=== PATIENT | female | born 1970 | race Caucasian/White ===

== ENCOUNTER 2017-12-17 19:57 | Emergency (ER) | payer OTHER, SELFPAY ==
[2017-12-17 19:58] VITALS: BP 155/100; PULSE 107; RESP 16; TEMP 36.9; O2SAT 97; BMI 33.3
[2017-12-17 21:19] LABS: Mucous, Urine 0 SEEN /hpf (<or=2+); Red Blood Cells-Urine 0 SEEN /hpf (0-5); White Blood Cells 0 SEEN /hpf (0-5)
[2017-12-17 21:30] LABS: Color, Urine Yellow (Yellow); Glucose, Dipstick Normal (Normal); Ketone-Dipstick Negative (Negative); Leukocyte Esterase-Dipstick Negative /ul (Negative); Nitrite-Dipstick Negative (Negative); Occult Blood-Urine Negative /ul (Negative); Protein-Dipstick Negative (Negative); Specific Gravity, Urine 1.015 (1.002-1.030); Urine Bilirubin Dipstick Negative (Negative); Urine Clarity Clear (Clear); Urine Urobilinogen Normal (Normal)
[2017-12-17 22:02] LABS: Bacteria RARE /hpf (None Seen); Squamous Epithelial Cells - UA 0-5 SEEN /hpf (5-10)
--- NOTE | 2017-12-17 22:52 | CT_ITS ---
STUDY: CT ABDOMEN AND PELVIS WITHOUT CONTRAST REASON FOR EXAM: Female, 47 years old. RT FLANK PAIN AND NAUSEA SINCE THIS AM,ELEVATED BP PRIOR C-SECTIONS AND CHOLECYSTECTOMY RADIATION DOSAGE (If Supplied By Facility): CTDIvol = ( 14.99 ) mGy, DLP = ( 786.69 ) mGycm TECHNIQUE: Transaxial images were obtained from the dome of the diaphragm to the symphysis pubis without oral contrast, and without intravenous contrast. Sagittal and coronal images were reconstructed. Individualized dose optimization techniques were used for this CT. COMPARISON: CT Abdomen/Pelvis Jul 29 2015 2:08pm FINDINGS: The visualized lung bases are unremarkable. The visualized portions of the heart are within normal limits. Normal liver. There are surgical clips in the gallbladder fossa consistent with a prior cholecystectomy. Normal spleen. Normal pancreas. Normal bilateral adrenal glands. Normal right kidney. There is cortical scarring of the left kidney. Left extrarenal pelvis. Normal visualized stomach. Normal small intestine. There are multiple colonic diverticula consistent with diverticulosis. The appendix is visualized and appears normal. Normal abdominal aorta. Normal inferior vena cava. Normal retroperitoneum. Normal urinary bladder. Normal visualized uterus. Normal abdominal wall. There is endplate spondylosis of the vertebral body. CT/Abdomen/Pelvis without Cont IMPRESSION: Cholecystectomy. There are multiple diverticuli of the colon. There is diverticulosis but no radiographic signs for diverticulitis. There is cortical scarring of the left kidney. There are no renal stones. Electronically Signed: Jigar Thornton MD at 23:53 EDT , Service support ,
--- NOTE | 2017-12-17 22:53 | ED.VISSUMM ---
- ER Visit Summary Date of Service: 12/17/17 Chief Complaint: Right flank pain History of Present Illness: The patient is a 47 F waxing and waning right flank pain since this morning. Pain radiating to the groin. No urinary symptoms. Nausea without vomiting. No history of kidney stones. Took Excedrin Migraine this morning with no relief. Did have a headache this morning which has resolved. Pain currently 7 out of 10. Occasional sharp sensations. History of uterine ablations are for no menstrual periods. States she has had a history of a kidney atrophy for she thinks it is on the left side. She saw Dr. Curtis. Unknown etiology. No gastric ulcers. Physical Examination: General: Alert and oriented ?3, mild distress HEENT: Normocephalic, atraumatic. Moist mucosa membranes Neck: supple, nontender. Cardiovascular: Regular rate and rhythm, no murmurs Respiratory: Normal breath sounds, symmetric, no distress Back: Right CVA tenderness with no rash. Abdomen: Soft, nontender, nondistended Extremities: Nontender, no edema, pulses intact ?4 Neuro: no focal neurological deficits. Test Results: UA negative. HCG negative. BMP, CBC normal. CT abdomen pelvis negative. Emergency Department Course and Treatment: Patient uncomfortable, treated morphine and Zofran. Fluids given. Renal stone protocol was negative. Normal appendix, no obstructive uropathy. Discussed with patient and spouse, monitoring for any rash. Denies any injury. With her history of renal atrophy on one side, discussed using Tylenol as needed for symptom control. Follow-up with PCP. Return if any worsening symptoms. All questions are answered. Treatment Plan: [] Disposition: Discharge Impression: 1. Right flank pain uncertain etiology This note was generated with [employer] dictation software. It may contain incorrect words, spelling, and punctuation that were not noted in review of the chart prior to signing ED Disposition - Plan for ED Patient: Disposition: Home or Assisted Living Chief Complaint: Flank Pain Diagnosis: Right flank pain Instructions: ED Flank Pain Uncertain Cause Referrals: Brice Floyd [Primary Care Provider] - 3-5 Days if not improving Additional Instructions: Monitor for any rash. Use Tylenol as needed for pain control. Follow with PCP. Return if any worsening symptoms.
[2017-12-17 23:02] LABS: Pregnancy, Serum, hCG Quali. NEGATIVE Negative (0-9 Nonpreg)
[2017-12-17] MEDS: 0.9% Normal Saline 1,000 ML 250 ML IV (23:06)
[2017-12-17] MEDS: Ondansetron 4 MG/2 ML Vial IV (23:06)
[2017-12-17 23:17] LABS: Absolute Lymphocyte Count 1.87 X10^3/ul (0.83-4.51); Absolute Neutrophil Count 5.7 X10^3/uL (2.0-7.7); Basophil# 0.01 X10^3/uL; Basophil% 0.1 % (0-1); Eosinophils% 1.2 % (0-5); Hematocrit 45.3 % (37-47); Hemoglobin 15.3 g/dl (12.0-15.0); Lymphocyte # 1.87 X10^3/ul (4.0); Lymphocyte % 22.8 % (19-41); Mean Corp Hgb Conc 33.8 g/gl (32-36); Mean Platelet Vol. 10.5 fl (6.2-12.0); Monocyte# 0.54 X10^3/uL; Monocyte% 6.6 % (0-10); Neutrophil # 5.66 X10^3/uL (2.7-7.7); Neutrophil % 69.1 % (47-70); Platelet Count 254 K/mm3 (150-450); RBC Distribution Width CV 12.6 % (11.6-14.6); RBC Distribution Width SD 39.7 fl (35.1-43.9); Red Blood Count 5.27 M/mm3 (4.2-5.4); White Blood Count 8.2 K/mm3 (4.4-11.0)
[2017-12-17 23:18] LABS: POSITIVE COUNT NO; POSITIVE DIFFERENTIAL NO; POSITIVE MORPHOLOGY NO
[2017-12-17 23:24] LABS: Anion Gap 6 (5-15); BUN 12 mg/dL (7-18); BUN/Creat Ratio 17.2 RATIO (10-20); Calcium,Total 8.8 mg/dL (8.5-10.1); Chloride 106 mmol/L (98-107); EST Glomerular Filtration Rate 95 mL/min (>60); Est Glom Filt Rate - Afr Amer 115 mL/min (>60); Estimated Creatinine Clearance 84.87 ml/min; Glucose 92 mg/dL (74-106); Potassium 3.7 mmol/L (3.5-5.1); Sodium Level 137 mmol/L (136-145)
[2017-12-18 00:44] VITALS: BP 124/80; PULSE 62; RESP 18; O2SAT 97
== END 2017-12-18 00:45 | disposition home or self-care (01) ==
PROVIDERS: Emergency Provider Emergency Medicine; Family Provider Family Medicine; PCP Family Medicine
DX: R10.9 Unspecified abdominal pain (principal); F41.9 Anxiety disorder, unspecified; Z87.448 Personal history of other diseases of urinary system; Z79.899 Other long term (current) drug therapy
CPT/HCPCS: 74176; 80048; 81001; 84703; 85025; 96361; 96374; 96375; 99283; J7030; A4216; J2405

== ENCOUNTER 2018-04-19 07:00 | Outpatient (RCR) | payer OTHER, SELFPAY ==
--- NOTE | 2018-03-25 07:56 | HP.PTEVAL ---
Patient's Visit Information OMID WEAVER is a 47 year old F referred to Physical Therapy by ALMA Bailey with a diagnosis of Shoulder Pain. Date of Evaluation: 03/25/18 Physical Therapist: Desirae Byrnes - Visit Plan Frequency: 2x /Week Duration: 3 Weeks Plan: Focus on ROM and postural corrections- modality of US as needed for inflammation control - Subjective Subjective: Patient reports straining her shoulder joint-carrying dress clothes over her shoulder and its hurt ever since- end of February. Went to the MD last week who gave her a muscle relaxer and had a massage and pain injection. It catches when she does simple tasks. Describes pain as sharp and catching. Worst:7/10 hits then goes away- does have mild dull/achy pain that lingers- towards the end of the day. Agg: reaching. Best: 0/10 Eases: nothing. Pain is located in the anterior shoulder- will radiate to the elbow and she does have tense pains in the neck. 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 No BENITEZ, blurred vision or dizziness. Agg after carrying/lifting 6 month old grandbaby. Feels the shoulder is better than last week but its still catching/shooting randomly. Right hand dominate. No x-ray or MRI. PMhx: none Meds: lexipro, muscle relaxers, steriod dose pack (last day is today). Sleep: disturbed- belly/side sleeper- hard to get comfortabe and will wake her up. 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 - Objective Posture: significant rounded shoulders- mild forward head- can correct with verbal and tactile cues but does not maintain. Gait: decreased arm swing and trunk rotation. Palpation: tender along upper trap to the tip of the acromion, bicipital groove. ROM: cervical: WNL AROM Shoulder: flexion: 110 degrees, Abd: 90 degrees, IR: to pocket ER: 40 degrees PROM: flexion; 130 degrees Abd: 110 degrees- shoulder has pain at all end ranges- elbow/wrist/hand: WNL. Sensation: WNL. Strength: Scap:fair minus, Shoulder: 4/5 with pain in all directions within available range. Elbow/Wrist/Store Loss Prevention Manager: WNL. Special Test: Impingment: positive, Neer: positive, Empty Can: negative Lift off: negative - Goals Goal 1:: Patient will be I with HEP and progression Goal Time Frame: 4-6 Weeks Goal 2:: Patient will maitain proper posture t/o tx session to demo increased scap s/s. Goal Time Frame: 4-6 Weeks Goal 3:: Patient will demo full AROM of the left shoulder to ease ADL's. Goal Time Frame: 4-6 Weeks Goal 4:: Patient will report 0/10 pain for 1 week Goal Time Frame: 4-6 Weeks - Rehabilitation Potential Physical Therapy Diagnosis: Patient presents with hypomobility- she has decreased ROM, strength and muscular endurance leading to poor posture and increased pain with ADL's. Rehabilitation Potential: Fair - Anticipated Interventions Patient/Client Instruction: Educate patient on: Benefits of Fitness Program For the Purpose of:: To improve ability to perform ADL's Therapeutic Exercise to Include: Strength training, Endurance training, Agility training, Postural training, Passive ROM, Active ROM, Scapular Strength/Stabilization For the Purpose of:: To improve muscle performance and motor function TENS: Yes Cryotherapy (ice pack, ice massage): Yes Thermo therapy (hot pack): Yes Ultrasound (thermal/non thermal): Yes For the Purpose of:: To decrease pain Thank you for the opportunity to evaluate your patient. For Medicare and Medicare HMO plans, please review the plan of care and approve it. It will need to be FAXED BACK to us at [phone] for Medicare purposes. Please let me know if there are questions or concerns regarding this plan of care. Physician Signature: Date:
--- NOTE | 2018-04-19 07:18 | HP.PTDCSUM ---
HP - PT D/C Summary It has been my pleasure to treat OMID WEAVER under orders from ALMA Bailey, for the diagnosis of Shoulder Pain for a total of 7 visit(s). Discharge Date: Please see the following information for a summary of their discharge status. - Subjective Subjective: Patient reports that she is happy with progress- she still has some s/s but its improving. She feels confident with HEP and will continue at home. She still has some snapping and popping in the left shoulder. She plans to see ortho for a possible injection - Pain Left Shoulder Pain Intensity (Out of 10): 0 - Objective Objective/Function: Posture: improved posture- mild forward head- can correct with verbal and tactile cues and will maintain for approx. 3 minutes. Gait: no deviation noted- no guarding of the UE. Palpation: tender along upper trap to the tip of the acromion, bicipital groove. ROM: cervical: WNL AROM Shoulder: WFL in all planes- elbow/wrist/hand: WNL. Sensation: WNL. Strength: Scap:fair, Shoulder: 4+/5 with discomfort in all directions. Elbow/Wrist/Trade Sales Assistant: WNL. Special Test: Impingment: positive, Neer: positive, Empty Can: negative Lift off: negative - Goals Goal 1:: Patient will be I with HEP and progression Goal Progress: Goal Met Goal 2:: Patient will maitain proper posture t/o tx session to demo increased scap s/s. Goal Progress: Goal Met Goal 3:: Patient will demo full AROM of the left shoulder to ease ADL's. Goal Progress: Goal Met Goal 4:: Patient will report 0/10 pain for 1 week Goal Progress: Progressing - Plan Plan: Discharge to I HEP - D/C Information If there are questions or concerns regarding this patient's physical therapy, please feel free to call me at [phone]. Thank you for the referral of this patient. Sincerely, Desirae Byrnes
== END 2018-04-19 19:00 | disposition home or self-care (01) ==
LOC: PT 07:00
PROVIDERS: Family Provider Family Medicine; PCP Family Medicine; Visit Provider Physician Assistant
DX: M25.512 Pain in left shoulder (principal); M54.2 Cervicalgia
CPT/HCPCS: 97110; 97161; 97164

== ENCOUNTER → 2018-05-31 07:22 | Outpatient (CLI) | payer OTHER, SELFPAY | PROVIDERS: Family Provider Family Medicine; PCP Family Medicine; Visit Provider Physician Assistant | DX: R30.0 Dysuria (principal) | CPT/HCPCS: 87086; 87088 ==

== ENCOUNTER 2018-08-13 17:15 | Outpatient (RCR) | payer OTHER, SELFPAY ==
--- NOTE | 2018-09-25 12:38 | MASS.DISCH ---
Massage Therapy Discharge Summary: Discharge Date: 09/25/2018 Kelsey was seen for a massotherapy evaluation on 03/21/2018 with the diagnosis of cervicalgia and low back pain. She was treated with four sessions of massage therapy consisting of deep pressure soft tissue techniques, myofascial release and trigger point compression to her cervical, thoracic, lower back, upper extremities and hips. Kelsey responded well to the therapy by reporting decreased tension and pain throughout her neck, shoulders, lower back and hips. Her goals for therapy were met throughout the treatment sessions. At this time this patient is being discharged from our care at [facility] facility.
== END 2018-08-13 19:00 | disposition home or self-care (01) ==
LOC: MASS 17:15
PROVIDERS: Family Provider Family Medicine; PCP Family Medicine; Visit Provider Physician Assistant
DX: M54.2 Cervicalgia (principal); M54.5 Low back pain
CPT/HCPCS: 97124

== ENCOUNTER → 2018-11-18 06:47 | Outpatient (CLI) | payer OTHER, SELFPAY ==
--- NOTE | 2018-11-18 06:50 | BI_ITS ---
MAMMOGRAPHY - BILATERAL SCREENING REASON FOR EXAM: Female, 48 years old. Routine annual screening examination. PERTINENT HISTORY: Non-contributory. TECHNIQUE: Digital bilateral breast betzy (3D mammographic acquisition) in the CC and MLO projections. 2-D mediolateral oblique (MLO) and craniocaudad (CC) views of both breasts were obtained. CAD: Full Field Digital Mammography with Computer Added Detection was performed. COMPARISON: Comparison is made with prior study dated July 03, 2016. FINDINGS: Breast Composition: There are scattered areas of fibroglandular density. There are no dominant masses or suspicious calcifications. Stable small bilateral axillary lymph nodes. No other significant abnormalities are identified. There has been no significant change since the prior study. BI/SCREENING MAMM (CAD), BILAT IMPRESSION: Stable bilateral screening mammogram. Yearly follow-up mammogram recommended. (A) ASSESSMENT CATEGORY: BIRADS Category 2: Benign. A letter regarding these results will be sent to the patient by the facility within 30 days. Approximately 10% of breast cancers are not detected by mammography. A normal mammogram should not delay biopsy of a clinically suspicious abnormality. [id number] Electronically Signed: Dyllan Beaulieu MD at 10:27 EST , Service support ,
== END ==
PROVIDERS: Family Provider Family Medicine; PCP Family Medicine; Referring Provider Family Medicine; Visit Provider Family Medicine
DX: Z12.31 Encounter for screening mammogram for malignant neoplasm of breast (principal)
CPT/HCPCS: 77063; 77067

== ENCOUNTER → 2019-05-30 | Outpatient (CLI) | payer OTHER, SELFPAY ==
[2019-05-03 08:32] VITALS: BMI 33.3
[2019-05-30 08:59] LABS: Hemoglobin A1c 5.9 % (4.2-6.3)
== END | disposition home or self-care (01) ==
PROVIDERS: Family Provider Family Medicine; PCP Family Medicine; Referring Provider Physician Assistant; Visit Provider Physician Assistant
DX: R73.9 Hyperglycemia, unspecified (principal)
CPT/HCPCS: 83036

== ENCOUNTER → 2019-11-25 | Outpatient (CLI) | payer OTHER, SELFPAY ==
[2019-09-26 07:42] VITALS: BMI 33.3
--- NOTE | 2019-11-25 07:16 | BI_ITS ---
MAMMOGRAPHY - BILATERAL SCREENING REASON FOR EXAM: Female, 49 years old. Routine annual screening examination. PERTINENT HISTORY: Non-contributory. TECHNIQUE: Digital bilateral breast génesis (3D mammographic acquisition) in the CC and MLO projections. 2-D mediolateral oblique (MLO) and craniocaudad (CC) views of both breasts were obtained. CAD: Full Field Digital Mammography with Computer Added Detection was performed. COMPARISON: Comparison is made with prior study dated November 18, 2018 and July 03, 2016. FINDINGS: Breast Composition: There are scattered areas of fibroglandular density. There are no dominant masses or suspicious calcifications. Stable small benign-appearing bilateral axillary lymph nodes. No other significant abnormalities are identified. There has been no significant change since the prior study. BI/SCREEN MAMM (CAD) W/GÉNESIS BILAT IMPRESSION: Stable bilateral screening mammogram. Yearly follow-up mammogram recommended. (A) ASSESSMENT CATEGORY: BIRADS Category 2: Benign. A letter regarding these results will be sent to the patient by the facility within 30 days. Approximately 10% of breast cancers are not detected by mammography. A normal mammogram should not delay biopsy of a clinically suspicious abnormality. [id number] Electronically Signed: Dyllan Beaulieu, at 9:21 EST , Service support ,
== END | disposition home or self-care (01) ==
LOC: OPBI 07:14
PROVIDERS: PCP Family Medicine; Referring Provider Physician Assistant; Visit Provider Family Medicine
DX: Z12.31 Encounter for screening mammogram for malignant neoplasm of breast (principal)
CPT/HCPCS: 77063; 77067

== ENCOUNTER → 2020-06-03 | Outpatient (CLI) | payer OTHER, SELFPAY ==
[2019-09-26 07:42] VITALS: BMI 33.3
[2020-06-03 13:00] LABS: Hemoglobin A1c 5.5 % (3.8-5.6)
== END | disposition home or self-care (01) ==
PROVIDERS: Physician Assistant; PCP Family Medicine; Referring Provider Family Medicine; Visit Provider Family Medicine
DX: R73.9 Hyperglycemia, unspecified (principal)
CPT/HCPCS: 83036

== ENCOUNTER → 2022-06-19 | Outpatient (CLI) | payer OTHER, SELFPAY ==
[2022-06-19 14:55] LABS: Hemoglobin A1c 6.4 % (3.8-5.6)
== END | disposition home or self-care (01) ==
LOC: LAB 14:22
PROVIDERS: PCP Family Medicine; Referring Provider Physician Assistant; Visit Provider Physician Assistant
DX: R73.9 Hyperglycemia, unspecified (principal)
CPT/HCPCS: 36415; 83036

== ENCOUNTER → 2023-06-01 | Outpatient (CLI) | payer OTHER, SELFPAY ==
--- NOTE | 2023-06-01 07:36 | BI_ITS ---
MAMMOGRAPHY - BILATERAL SCREENING REASON FOR EXAM: Female, 53 years old. Routine annual screening examination. PERTINENT HISTORY: Non-contributory. TECHNIQUE: Digital bilateral breast génesis (3D mammographic acquisition) in the CC and MLO projections. 2-D mediolateral oblique (MLO) and craniocaudad (CC) views of both breasts were obtained. CAD: Full Field Digital Mammography with Computer Added Detection was performed. COMPARISON: Comparison is made with prior study of November 25, 2019 and November 18, 2018. FINDINGS: Breast Composition: There are scattered areas of fibroglandular density. There is a 1 cm x 0.8 cm well-defined nodule in the upper central portion of the left breast. Correlation with ultrasound is recommended. This also evidence of a 0.8 cm x 0.6 cm well-defined nodule in the central portion of the breast. Correlation with ultrasound is recommended. Prominent left axillary lymph node. Since prior study, there has been mild degree of her thickening of the overlying skin of the left breast. No other significant abnormalities are identified. BI/SCRN MAMM (CAD)W/GÉNESIS BILAT IMPRESSION: Nodular densities in the left breast as described. Correlation with ultrasound is recommended. Prominence of the left axillary lymph nodes as described. Correlation with ultrasound is recommended as well. ASSESSMENT CATEGORY: BIRADS Category 0: Incomplete. Need additional imaging evaluation. A letter regarding these results will be sent to the patient by the facility within 30 days. Approximately 10% of breast cancers are not detected by mammography. A normal mammogram should not delay biopsy of a clinically suspicious abnormality. [id number] Electronically Signed: Dyllan Beaulieu MD at 8:40 EDT ,
[2023-06-01 08:05] LABS: Microalbumin:Creatinine Ratio 20.4 mg/g CRE (<30 mg/g CRE)
== END | disposition home or self-care (01) ==
LOC: OPBI 07:33
PROVIDERS: Physician Assistant; PCP Family Medicine; Referring Provider Family Medicine; Visit Provider Family Medicine
DX: Z12.31 Encounter for screening mammogram for malignant neoplasm of breast (principal); R73.9 Hyperglycemia, unspecified
CPT/HCPCS: 77063; 77067; 82043; 82570

== ENCOUNTER → 2023-06-06 | Outpatient (CLI) | payer OTHER, SELFPAY ==
--- NOTE | 2023-06-06 07:48 | US_ITS ---
STUDY: ULTRASOUND BREAST - LEFT REASON FOR EXAM: Female, 53 years old. Abnormal screening mammogram. TECHNIQUE: Axial and longitudinal images of the LEFT breast were performed with a high resolution ultrasound transducer. # OF IMAGES: [id number] COMPARISON: Comparison is made with prior mammogram dated June 01, 2023. FINDINGS: LEFT Breast: There is an 8 mm x 7 mm x 6 mm cyst at the 12:00 to 1:00 position of the breast at 5 cm from the nipple. There is a 1.2 cm x 0.7 cm x 1 cm hypoechoic heterogeneous nodule with spiculated margins at the 12:00 position of the breast at 6 cm from the nipple. Biopsy recommended. Enlarged left axillary lymph nodes. There is a dominant lymph node measuring 2.9 cm x 1.4 sign grown 0.5 cm. US/Breast Limited Unilateral IMPRESSION: 1.2 cm x 0.7 cm x 1 cm hypoechoic heterogeneous nodule with spiculated margins at the 12:00 position of the breast at 6 cm from nipple. Biopsy recommended. Enlarged left axillary lymph nodes. Biopsy recommended as well. ASSESSMENT CATEGORY: BIRADS Category 4: Suspicious - Biopsy Should Be Considered. A letter regarding these results will be sent to the patient by the facility within 30 days. Electronically Signed: Dyllan Beaulieu MD at 12:40 EDT ,
== END | disposition home or self-care (01) ==
PROVIDERS: PCP Family Medicine; Referring Provider Physician Assistant; Visit Provider Physician Assistant
DX: R92.2 Inconclusive mammogram (principal); R73.9 Hyperglycemia, unspecified
CPT/HCPCS: 36415; 76642; 83036

== ENCOUNTER → 2023-06-08 | Outpatient (CLI) | payer OTHER, SELFPAY ==
--- NOTE | 2023-06-08 | IMM_PTH ---
PATIENT: OMID WEAVER LOC: [facility] U#:[id number] AGE/SX: 53/F ROOM: RE06/08/[address]: Dr. Lalo Zelaya MD : 1970 BED: DIS: 06/08/2023 SPEC #: [id number] RECD: 06/13/23 14:16 STATUS: BASIM REQ #: [id number] HALIE: 06/08/23 00:[address]: Lalo Zelaya DEPT: IMMUNOHISTOCHEMISTRY RECD BY: Jenn Adams ENTERED: 06/13/23 14:17 SP TYPE: IMMUNO OTHR DR: Dr. Brice Floyd MD Tissues: A - Left breast, NOS B - Axillary lymph node, NOS Procedures: Mammoglobin (initial) CALPONIN-1 (add) CK5-6 (add) CK8 (add) E-CAD (add) HER2 NIMA (add) KI-67 (add) P53 (add) MS (add) Pankeratin (add) GATA3 (add) P40 (add) ER (initial) PHYSICIAN & [address] [address] SPECIMEN INFORMATION: Tissue Source: A - Left breast, B - Left lymph node tissue Clinical Info: Left breast nodule Specimen Number: [id number] A & B CPT code: 54156 x2, 63082 x8, 27215 x3 METHODOLOGY: Deparaffinized sections of prefer/formalin-fixed tissue or PAP/DQ stained slides are incubated with monoclonal/polyclonal antibodies/oligonucleotide probes. Localization is made via biotin free immunoperoxidase method. Appropriate controls are performed and reacted as expected. Results on target cell population are indicated in the following table: RESULTS: ANTIBODY / CLONE RESULT Block A P53 (DO-7) negative, null pattern Ki-67 (30-9) positive, 40% CK8 (41whedY45) positive CK5-6 (D5 & 1684) negative Calponin-1 (VN030W) negative P40 (BC28) negative E-Cad (ECH-6) positive MORPHOMETRIC ANALYSIS ER (clone 6F11) 90%, strong intensity MS (clone 16/1E2) 45%, moderate intensity Her-2Neu (clone CB11) 3+ Block B Mammaglobin (31A5) positive GATA3 (L50-823) negative AE1-3 (AE1/AE3/PCK26) positive The prognostic test for HER2 is performed on formalin-fixed paraffin embedded tissue. A 3+ (positive) staining pattern is defined as intense, homogeneous, complete, circumferential membranous staining in >10% of contiguous tumor cells. A similar weak (2+) staining pattern is interpreted as equivocal. BRENNAN follow-up testing is recommended for all equivocal cases. Positivity/negativity for ER/MS is reported if > or < 1% of the tumor cells are immuno- reactive, respectively. The ASCO/CAP criteria is used for scoring. Reference: Journal of Clinical Oncology, 2013; 31:4692-0412 & 2010; 16:9377-7250. Duration of fixation: 76.5 Hrs; Sample Adequate: Yes. These assays have not been validated on decalcified tissues. Results should be interpreted with caution given the likelihood of false negativity on decalcified specimens. These tests were developed and their performance characteristics determined by [facility]. They may not have been cleared or approved by the U.S. Food and Drug Administration. The FDA has determined that such clearance or approval is not necessary. The above immunohistochemical/dualISH markers are ordered and reviewed by the Pathologist. INTERPRETATION: A. 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 Positive for estrogen receptors (favorable prognostic indicator). Positive for progesterone receptors (favorable prognostic indicator). Positive for overexpression of [id number]. B. Left lymph node tissue, core biopsy: Metastatic carcinoma consistent with breast primary. AM:tom 06/14/2023
--- NOTE | 2023-06-08 | BRBX_PTH ---
PATIENT: OMID WEAVER LOC: [facility] U#:[id number] AGE/SX: 53/F ROOM: RE06/08/[address]: Dr. Lalo Zelaya MD : 1970 BED: DIS: 06/08/2023 SPEC #: [id number] RECD: 06/08/23 16:25 STATUS: BASIM REWarren #: [id number] HALIE: 06/08/23 00:[address]: Lalo Zelaya DEPT: SURGICAL PATHOLOGY RECD BY: Evangelista Ivy ENTERED: 06/12/23 09:59 SP TYPE: BREAST BX OTHR DR: Dr. Brice Floyd MD Tissues: A - Left breast, NOS B - Lymph node of upper extremity, NOS Procedures: Surgery Specimen Level IV Surgery Specimen Level V HEADER OPERATION: Biopsy of left breast nodule and left lymph node PRE-OP DIAGNOSIS: Left breast nodule TISSUE SUBMITTED: A - Left breast tissue, B - Left lymph tissue MICROSCOPIC DIAGNOSIS A. Left breast, needle core biopsy: Invasive ductal carcinoma with the follow characteristics: Nuclear grade - 2/3 Maximal length - 13.5 millimeters Other findings - ductal carcinoma in situ, nuclear grade 2 with comedo necrosis and microcalcifications. See comment. B. Left lymph node tissue, core biopsy: Metastatic carcinoma consistent with breast primary. AM:tom 06/13/2023 COMMENT A & B. Immunohistochemistry ([id number]) supports the above diagnosis. Case has been reviewed in consultation with Dr. Cifuentes who concurs with the above diagnosis. IDC:AM MICROSCOPIC DESCRIPTION Slides are reviewed. GROSS DESCRIPTION A - Received in fixative is one container labeled with the patient's name and designated left breast. The specimen consists of multiple elongated fragments of lake-yellow fibroadipose tissue that in aggregate measure 2.0 x 0.3 x 0.1 cm. The entire specimen is submitted in one cassette. B - Received in saline is one container labeled with the patient's name and designated left lymph tissue. The specimen consists of multiple elongated fragments of yellow adipose tissue measuring in aggregate 2.0 x 0.3 x 0.1 cm. The entire specimen is submitted in one cassette. / SJ:otm 06/12/2023 TC:0 CPT: 29594, 76247
== END | disposition home or self-care (01) ==
LOC: LABSPEC 16:28
PROVIDERS: PCP Family Medicine; Referring Provider Surgery; Visit Provider Surgery
DX: C50.912 Malignant neoplasm of unspecified site of left female breast (principal); C79.89 Secondary malignant neoplasm of other specified sites
CPT/HCPCS: 88305; 88307; 88341; 88342

== ENCOUNTER → 2023-06-25 | Outpatient (CLI) | payer OTHER, SELFPAY ==
--- NOTE | 2023-06-25 08:14 | NM_ITS ---
CLINICAL: 53-year-old female with history of primary breast carcinoma. WHOLE BODY 99m Tc MDP RADIONUCLIDE BONE SCINTIGRAPHY COMPARISON: None available FINDINGS: Following the intravenous administration of 26.0 mCi of 99m Tc MDP, whole body bone images reveal: 1. Enhanced tracer uptake is defined in the acromioclavicular and sternoclavicular compartments of both shoulders, the patellofemoral compartments of both knees, the left midfoot. 2. Facilitated radiopharmaceutical concentration is visualized in the right proximal-distal tibial diaphysis. 3. The remaining skeletal structures are scintigraphically unremarkable with normal-appearing renal images and urinary bladder activity identified. NM/Bone Scan Whole Body IMPRESSION: 1. The increase in tracer uptake defined in the bilateral shoulders, both knee articulations, the left midfoot is commensurate with degenerative arthrosis. 2. Increased radiotracer defined in the right proximal-distal tibial diaphysis is commensurate with previous trauma-fracture and associated orthopedic hardware placement. Electronically Signed: Cesar Mckee DO at 23:51 EDT ,
--- NOTE | 2023-07-17 10:30 | PET_ITS ---
EXAMINATION: FDG PET-CT INDICATIONS: A 53-year-old female with history of primary breast carcinoma presenting for initial staging examination. COMPARISON EXAMINATION: None available INDEX LESION SIZE SUV INTERPRETATION Left breast 15.4-mm (largest) 10.1 (max) Fulfills quantitative criteria for viable neoplasm Left axilla, retropectoral region 26.1-mm (largest) 12.2 (max) Fulfills quantitative criteria for viable neoplasm TECHNIQUE: Following the intravenous administration of 14.0 mCi of F-18 deoxyglucose, multiplanar image acquisitions of the neck, chest, abdomen and pelvis to level of mid thigh, obtained at one hour post radiopharmaceutical administration contemporaneously interpreted with the current CT of the neck, chest, abdomen and pelvis, to level of mid thigh, dated 07/17/23 via coregistration reveals: HEIGHT:?64 inches?WEIGHT: 196 lbs. FINDINGS: Head/Neck: There is no evidence of abnormal increased glucose metabolism in the pharyngeal mucosal space, parapharyngeal space, bilateral-lateral and anterior neck, hypopharynx and distribution of the laryngeal structures. The visualized portion of the cerebral cortical-subcortical structures demonstrate symmetric and preserved glucose metabolism. CHEST: Multifocal increased radiopharmaceutical concentration is defined within the left breast. The calculated maximal standard uptake value is 10.1. The maximal axial diameter of the largest metabolic abnormality is 15.4-mm. Facilitated FDG concentration is noted in the left axilla, retropectoral region. The calculated maximal standard uptake value is 12.2. The maximal axial diameter of the largest corresponding soft tissue density is 26.1-mm. Pertinent chest CT findings are as follows. Aranza-cath placement is noted. Right axillary soft tissue densities are ametabolic. There are no parenchymal densities-nodules defined in the right and left hemithorax with quantitatively significant increased FDG uptake. Abdomen/Pelvis: Normal physiologic distribution of the radiopharmaceutical is apparent in the hepatic (4.5) and splenic parenchyma, both renal units, bladder and visualized intestinal tract. Pertinent abdomen and pelvis CT findings are as follows. The gallbladder is surgically absent. The left kidney is hypotrophic. There is atherosclerotic calcification defined in the abdominal aorta without evidence of dilatation-aneurysm formation. Colonic diverticulosis is noted without evidence of diverticulitis. Calcification is noted within the uterus. Right and left inguinal soft tissue densities are ametabolic. Skeletal: Degenerative changes are noted in the cervical, thoracic and lumbar spine without evidence of increased radiopharmaceutical concentration. Increased radiopharmaceutical concentration is defined in the lower lumbar spine involving the spinous process in the midline most consistent with trauma-fracture or periostitis. PET/PET/CT Tumor Base -Thigh Init IMPRESSION: 1. ABNORMAL EXAMINATION INDICATIVE OF MALIGNANT VIABLE NEOPLASM. 2. Increased radiopharmaceutical concentration defined in the left breast fulfills quantitative criteria for malignant transformation. 3. Facilitated uptake manifest in the left axillary and retropectoral region fulfills quantitative criteria for viable metastatic disease. Electronic Signature Cesar Mckee D.O. Accurate Quantification of SUVs for this report are calculated using the exclusive [employer], ([place]. Patent No. [id number] [phone] [phone] [place] patent [phone] ). Standardization and correction of the FDG SUV metric exclusively available with [employer] intellectual property, allow for vendor non-specific objective quantitative sequential FDG PET-CT comparison and otherwise unobtainable optimization of the sensitivity and specificity of the examination. [email or web address].[email or web address]/[email or web address] Electronically Signed: Cesar Mckee DO at 12:35 EDT ,
== END | disposition home or self-care (01) ==
LOC: NM 08:13
PROVIDERS: PCP Family Medicine; Referring Provider Internal Medicine Medical Oncology; Visit Provider Internal Medicine Medical Oncology
DX: C50.812 Malignant neoplasm of overlapping sites of left female breast (principal)
CPT/HCPCS: 78306; A9503

== ENCOUNTER → 2023-06-26 | Outpatient (CLI) | payer OTHER, SELFPAY ==
--- NOTE | 2023-06-26 14:18 | CT_ITS ---
STUDY: CT CHEST, ABDOMEN T PELVIS WITH CONTRAST REASON FOR EXAM: Female, 53 years old. STAGING BREAST CA-IV ONLY RADIATION DOSAGE (If Supplied By Facility): CTDIvol = ( 19.46 ) mGy, DLP = ( 1868.09 ) mGycm TECHNIQUE: Transaxial imaging was performed following intravenous administration of 100ML ISOVUE 300. Individualized dose optimization techniques were used for this CT. COMPARISON: Nuclear medicine bone scan June 25, 2023 CT abdomen pelvis December 17, 2017. FINDINGS: CHEST Chest wall: [[Skin thickening with underlying multifocal nodularity. Left axillary asymmetric bulky adenopathy involving level 1, 2, and level 3, reference level 3 node measuring 1.4 x 0.8 cm axial image 16. Unremarkable thyroid. No cardiomegaly or pericardial effusion. No densely calcified coronary atherosclerosis. No aortic dissection or aneurysmal dilatation. Unremarkable esophagus. No mediastinal or hilar adenopathy. Unremarkable pulmonary outflow track and on angiogram exam. No airspace consolidation, suspicious nodule, effusion, or pneumothorax. Minimal basilar subsegmental atelectasis. There is no demonstrated pleural abnormality. Normal osseous structures. ABDOMEN PELVIS Hepatic steatosis. No evidence of focal hepatic mass.. Cholecystectomy. Normal spleen. Normal pancreas. Normal bilateral adrenal glands. Normal right kidney. Lobulated atretic left renal kidney with multifocal cortical thinning and scarring. No hydronephrosis or perinephric inflammation. Unremarkable ureters and bladder. No acute gastric finding. No small bowel distention or focal wall thickening. Normal appendix. Distal colonic diverticulosis without evidence of diverticulitis. Unremarkable uterus and adnexa. No acute osseous finding. CT/CT Chest, Abd, Pel w/Contrast IMPRESSION: Left breast skin thickening with underlying nodularity compatible with provided history of left breast cancer, better evaluated by mammography. Left axillary adenopathy involving all levels including level 3 No evidence of metastatic disease within the internal chest abdomen or pelvis. Hepatic steatosis. Colonic diverticulosis. Partially atretic left kidney with multifocal renal cortical thinning and scarring. Electronically Signed: Julius Gusman MD at 2:29 EDT ,
[2023-06-26 14:45] VITALS: BP 130/78; PULSE 79; RESP 16; O2SAT 97
[2023-06-26] MEDS: DiphenhydrAMINE 50 MG/ML Syringe IV (14:46)
--- NOTE | 2023-06-26 14:53 | NURSING ---
Pt c/o scratchy throat and lip numbness immediately after contrast injection. Dr. Beaulieu immediately notified and ordered 50mg IV Benadryl. Pt able to talk and maintain airway, denies feeling like her tongue is swelling.
[2023-06-26 15:00] VITALS: BP 135/76; PULSE 70; RESP 16; O2SAT 98
[2023-06-26 15:15] VITALS: BP 135/72; PULSE 69; RESP 16; O2SAT 99
== END | disposition home or self-care (01) ==
LOC: CT 14:17
PROVIDERS: PCP Family Medicine; Referring Provider Internal Medicine Medical Oncology; Visit Provider Internal Medicine Medical Oncology
DX: C50.811 Malignant neoplasm of overlapping sites of right female breast (principal)
CPT/HCPCS: 71260; 74177; Q9967; A4216

== ENCOUNTER → 2023-07-02 | Outpatient (CLI) | payer OTHER, SELFPAY ==
--- NOTE | 2023-07-02 15:34 | MRI_ITS ---
STUDY: BILATERAL BREAST MR WITHOUT AND WITH CONTRAST REASON FOR EXAM: Female, 53 years old. Left breast cancer. Staging examination. TECHNIQUE: Multi-sequence multi-echo imaging of both breasts was performed with a dedicated breast coil. T1-weighted and T2-weighted images were performed before the administration of contrast. T1-weighted images were also performed after the intravenous administration of 17ml of Clariscan contrast. COMPARISON: Left breast ultrasound dated June 06, 2023, bilateral mammogram dated June 01, 2023 and bilateral mammogram dated November 25, 2019. FINDINGS: RIGHT BREAST: Predominantly fatty replaced breast tissue with minimal background enhancement. No abnormal enhancing masses or areas of non-mass enhancement in the right breast. LEFT BREAST: Fatty replacement with minimal background enhancement. Large extensive area of nodular and non-mass enhancement involving the upper inner and upper outer quadrants of the left breast measuring 11.5 cm x 8 x 10.2 cm. The largest mass is in the slightly retroareolar region laterally. No enhancing masses are identified below the nipple. Multiple enlarged lymph nodes with abnormal morphology in the left axilla, one of which has tissue clip artifact within it. No fracture abnormality in the visualized regions of the chest or liver. MRI/Breast Bilateral W/O and W IMPRESSION: Multicentric breast cancer on the left involving the upper inner and upper outer quadrants of the breast and measuring 11.5 cm x 8 cm x 10.2 cm. Multiple enlarged lymph nodes with abnormal morphology in the left axilla. No enhancing lesions identified below the nipple. CATEGORY: BIRADS Category 6: Known Biopsy-Proven Malignancy - Appropriate Action Should Be Taken. A letter regarding these results will be sent to the patient by the facility within 30 days. Electronically Signed: Javed Taylor MD at 14:56 EDT ,
== END | disposition home or self-care (01) ==
LOC: MRI 15:19
PROVIDERS: PCP Family Medicine; Visit Provider Internal Medicine Medical Oncology
DX: C50.812 Malignant neoplasm of overlapping sites of left female breast (principal)
CPT/HCPCS: 77049; A9575; A4216; C8908

== ENCOUNTER → 2023-07-05 | Outpatient (CLI) | payer OTHER, SELFPAY ==
--- NOTE | 2023-07-05 12:46 | ECHODONC_ITS ---
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 Myocardial strain analysis was performed in this exam to aid in the assessment of cardiac function. Exam performed in department. Left Ventricle Normal LV size. Left ventricular systolic function is normal. The estimated ejection fraction is 65 %. Stage 1 diastolic dysfunction. No regional wall motion abnormalities noted. Right Ventricle Normal RV size. Normal systolic function. Atria Normal left atrium. Normal right atrium. Mitral Valve Normal mitral valve. Tricuspid Valve Normal tricuspid valve. Mild tricuspid valve insufficiency. Pulmonary artery systolic pressure is 30 mmHg. Aortic Valve Normal aortic valve. Pulmonic Valve Normal pulmonic valve. Great Vessels Normal aortic root. The pulmonary artery is normal size. Normal inferior vena cava. Pericardium/Pleural No pericardial effusion. MMode/2D Measurements & Calculations LVIDd: 3.9 cm IVSd: 0.96 cm Ao root diam: 3.0 cm LVIDs: 2.5 cm LVPWd: 0.92 cm RVDd: 3.3 cm FS: 34.5 % LAV(MOD-bp): 32.4 ml LVAd ap4: 27.1 cm2 SV(MOD-sp4): 51.0 ml LAV(MOD-bp) Indexed: 16.8 ml/m2 LVLd ap4: 7.7 cm LAV(MOD-sp2): 30.0 ml EDV(MOD-sp4): 78.3 ml LAV(MOD-sp4): 32.7 ml EDV(sp4-el): 81.0 ml LVAs ap4: 14.0 cm2 LVLs ap4: 6.1 cm ESV(MOD-sp4): 27.3 ml ESV(sp4-el): 27.6 ml EF(MOD-sp4): 65.2 % EF(sp4-el): 66.0 % SV(sp4-el): 53.5 ml LA A4 area: 14.1 cm2 LA dimension(2D): 3.6 cm RA A4 area: 11.8 cm2 Time Measurements MV dec time: 0.22 sec Doppler Measurements & Calculations MV E max edd: 93.8 cm/sec Lat Peak E' Edd: 11.0 cm/sec Med Peak E' Edd: 8.9 cm/sec MV A max edd: 98.9 cm/sec E/E' lat: 8.5 E/E' med: 10.6 MV E/A: 0.95 Ao V2 max: 161.8 cm/sec LV V1 max: 142.0 cm/sec PA V2 max: 111.6 cm/sec Ao max P.5 mmHg LV V1 max P.1 mmHg TR max edd: 251.1 cm/sec TR max P.2 mmHg ECHO/ONC Echo Complete Interpretation Summary Normal LV size. Left ventricular systolic function is normal. The estimated ejection fraction is 65 %. Stage 1 diastolic dysfunction. The global longitudinal strain is normal. The global longitudinal strain = -19. 2 % (normal). Ordering Physician: Brice Mcintosh Referring Physician: BRICE MAR Performed By: Chela Nieto RDCS
== END | disposition home or self-care (01) ==
LOC: CVS 12:44
PROVIDERS: PCP Family Medicine; Referring Provider Internal Medicine Medical Oncology; Visit Provider Internal Medicine Medical Oncology
DX: C50.811 Malignant neoplasm of overlapping sites of right female breast (principal); Z79.899 Other long term (current) drug therapy
CPT/HCPCS: 93306; 93356

== ENCOUNTER 2023-07-13 05:59 | Day surgery (SDC) | payer OTHER, SELFPAY ==
[2023-07-13] VITALS (7 sets, daily range): BP systolic 115–120; BP diastolic 73–92; PULSE 69–77; RESP 14–18; TEMP 36.2–36.8; O2SAT 94–97; BMI 33.3
--- NOTE | 2023-07-13 06:17 | PCM.HP.BLA ---
History and Physical Date of Admission: 07/13/23 Intake Vital Signs 06/20/2315:54 06/27/2308:54 Height 5 ft 4 in BP 131/85 H Blood Pressure Location Rt brachial Position Sitting Respiration 17 Pulse 81 Pulse Source Monitor Temp 97.6 F L Temp Source Temporal Pulse Oximetry (%) 97 Oxygen Delivery Method room air Intake Visit Reasons: PORT PLACEMENT Chief Complaint: port placement Is patient in pain?: No Allergies Iodinated Contrast Media Allergy (Mild, Verified 06/27/23 08:56) Scratchy throat, lip numbnessfluticasone [From Advair Diskus] Allergy (Verified 06/27/23 08:56) Anaphylaxispromethazine Allergy (Verified 06/27/23 08:56) Unknownsalmeterol [From Advair Diskus] Allergy (Verified 06/27/23 08:56) Anaphylaxislatex Adverse Reaction (Verified 06/27/23 08:56) Hives Medications escitalopram oxalate 10 mg tablet (Lexapro) 10 mg PO DAILY 06/08/23 [History Confirmed 06/27/23] lorazepam 0.5 mg tablet (Ativan) 0.5 mg PO TID PRN 06/20/23 [History Confirmed 06/27/23] PFSH Medical History (Updated 06/27/23 @ 08:53 by Manisha Gibbons) Borderline diabetes Cold sensitivity Diarrhea Hay fever Hemorrhoids Kidney atrophy Leg fracture, left Pancreatitis Surgical History History of 2 sections History of cholecystectomy Family History Father Diabetes Parkinson's plus syndromeMother Asthma Hypertension Diabetes Alzheimer disease Social History Smoking Status: Never smoker alcohol intake: never details: Special occasions substance use type: does not use caffeine: Yes (6 cups daily ) Type: coffee what type of physical activity do you participate in: walking HPI HPI HPI: Patient is a 53-year-old female here for right chest port. The patient has left breast cancer with metastasis to lymph nodes. ROS General General: No weight change, appetite, fatigue, colon cancer, breast cancer or weakness HEENT HEENT: No difficulty swallowing, eye injury, eye surgery, swollen glands or hoarseness Endo Endocrine: No thyroid disease, diabetes mellitus, thyroid cancer, Hair loss, heat intolerance or cold intolerance Skin Skin: Yes rash; No changing moles Breast Breast: Yes left breast lump, abnormal mammogram and abnormal US; No right breast lump, nipple discharge, breast pain or breast enlargement Musc Musculoskeletal: Yes arthritis; No back problems, rheumatoid arthritis, gout or joint pain Cardio Cardiovascular: No murmur, pacemaker, heart disease, atrial fibrillation, high blood pressure, heart attack, heart stent, palpitations, shortness of breat with exertion or chest pain Psych Psychiatric: Yes anxiety; No depression or hearing voices Resp Respiratory: No shortness of breath, No sleep apnea, No cough, No COPD, No asthma, No emphysema and No wheezing Gastro Gastrointestinal: No abdominal pain, No nausea or vomiting, No diarrhea, No constipation, No blood in stool, No acid reflux, Yes hemorrhoids, No ulcers, Yes gallbladder problem and No black,tarry stools [place] Hematologic: No blood thinners, No blood disorders, No bleeding, No anemia and No blood clots Neuro Neurologic: No system reviewed and no additional complaints, except as documented, No as per HPI, No abnormal gait, No abnormal hearing, No abnormal movements, No abnormal speech, No behavioral changes, No burning sensations, No confusion, No convulsions, No disequilibrium, No dizziness, No localized weakness, No frequent falls, No headache(s), No lack of coordination, No loss of vision, No memory loss, No numbness, No other visual disturbances, No radicular pain, No restless legs, No sensory deficit, No syncope, No tingling, No tremor(s), No weakness and No other Exam Const General: cooperative Orientation: alert and oriented x3 HENMA Head: normal to inspection Neck Neck: normal visual inspection and full ROM Chest Chest palpation & inspection: normal inspection of the chest Resp Effort & Inspection: normal respiratory effort Auscultation: clear to auscultation bilaterally Cardio Rate: regular rate Rhythm: regular rhythm GI Inspection: non-distended Palpation: soft and nontender Skin General: no rashes or lesions noted Neuro General: patient alert and patient oriented x3 Extrem General: full ROM Psych Appearance: grossly normal Mental Status: mental status grossly normal Assessment and Plan Assessment and Plan (1) Encounter for insertion of venous access port: Status: Acute Plan: The patient is a 53-year-old female with left breast cancer. I discussed right chest port placement with the patient in detail. I discussed the risks including but not limited to bleeding, infection, pneumothorax, line infection or DVT. Patient understands the risks and is willing to proceed. Lalo Zelaya MD Pager: [facility] [address] [place] [address], [address] [place] [address] Office: I have examined the patient and the H&P has been reviewed. There are no clinical changes since date of exam.
[2023-07-13] MEDS: Lactated Ringers 1,000 ML 15 ML IV (06:57)
[2023-07-13] MEDS: Bupivacaine 0.25% 30 ML Vial (08:39)
[2023-07-13] MEDS: Lidocaine 1% (30 ml sdv) 30 ML Vial (08:39)
[2023-07-13] MEDS: Cefazolin 2 GM in 0.9% Normal Saline (100mL Bag) 100 ML IV (08:50)
--- NOTE | 2023-07-13 09:33 | OP.PCM_ITS ---
Report of Operation Date of Procedure: 07/13/23 Pre-Operative Diagnosis: Need for vascular access for chemotherapy Post-Operative Diagnosis: Same Surgery/Procedure Performed:: Ultrasound and fluoroscopy right chest port placement utilizing right IJ Type of Anesthesia: Local MAC Estimated Blood Loss (mL): 10 Description of Procedure: After obtaining informed consent patient was brought back to the operating room MAC anesthesia was induced and the right chest and neck were prepped in normal sterile fashion. Ultrasound was used to evaluate both IJs and the right IJ was selected. Next, using a needle, the right IJ was accessed and a guidewire was passed on into the superior vena cava under fluoroscopy guidance. A small incision was made over the puncture site and the dilator introducer was placed over the guidewire. Next this was capped and the pocket was made for the port. 1% lidocaine with epinephrine was injected in the proposed port site. An incision was made with scalpel. Electrocautery was used to make a pocket under the skin and subcutaneous tissue. Hemostasis was obtained. Next, the catheter was tunneled up to the neck incision site and placed through the introducer. The peel-away introducer was removed and the position of the catheter was confirmed on fluoroscopy. Next, the catheter was trimmed and attached to the port with the locking device. Interrupted 2-0 Vicryl sutures were used to anchor the port to the chest wall and then the port was placed inside the pocket. The pocket was then flushed with saline and the port irrigated with saline. There was good blood return and the port flushed easily. Next, heparin was injected into the port. The skin was closed with subcutaneous interrupted 3-0 Vicryl sutures. A single 3-0 Vicryl sutures placed under the skin at the neck incision site. Steri-Strips were placed as well as op sites. Patient tolerated procedure well, was taken to PACU in stable condition. Chest x-ray will be obtained. Grafts/Implants Used: 8 [place] PowerPort Admit VTE Documentation VTE Mechan Device Prophylaxis: SCD's
--- NOTE | 2023-07-13 09:35 | DCINST_ITS ---
Discharge Instructions Procedure Port-A-Cath Diet Discharge Diet: Light diet - advance as tolerated (Pain medication may cause nausea. You should typically eat light foods as you take your pain medication.) Activity Discharge Activity: Return to Normal Activity and May Shower (with your bandage in place in 1-2 days after surgery. DO NOT SHOWER WHEN YOUR PORT IS ACCESSED.) Dressing / Incision Call your doctor if your incision/area has: Continuous Slow Oozing, Sudden Increased Bleeding, Increased Pain/ Swelling, Increased Redness and Foul Smelling Discharge Call your doctor if you observe: Fever of 101 or Higher Remove Dressing in: 2 days Cleanse incision/area with: Soap & Water Follow Up Care Please Follow Up With: Lalo Zelaya MD When: as needed [phone] Test Results: Test results from this visit will be discussed in further detail at your follow- up appointment, if applicable. Discharge Plan Admission Attending Provider: Lalo Zelaya Primary Care Provider: Brice Floyd Instructions Additional Instructions / Restrictions: Alternate ibuprofen and Tylenol for pain. Discharge Orders/Prescriptions Prescriptions: No Action escitalopram oxalate [Lexapro] 10 mg tablet 10 mg PO DAILY lorazepam [Ativan] 0.5 mg tablet 0.5 mg PO TID PRN (Reason: anxiety) melatonin 10 mg capsule 10 mg PO QHS Referrals / Follow Up: Brice Floyd MD [Primary Care Provider] - Disposition Disposition (needs filled in before D/C Order can be placed): Home, Self Care
--- NOTE | 2023-07-13 09:40 | RAD_ITS ---
STUDY: X-RAY CHEST REASON FOR EXAM: Female, 53 years old. Line placement -- in pacu TECHNIQUE: Single AP portable view of the chest. COMPARISON: None. FINDINGS: A right-sided Port-A-Cath has been placed. The tip is at the junction of the superior vena cava and right atrium. The lungs are clear and expanded. There is no demonstrated pleural abnormality. Normal size heart. Normal mediastinum and livier. Normal visualized pulmonary arteries. Normal visualized aortic arch and descending thoracic aorta. Normal visualized thoracic spine. Normal visualized ribs, clavicles, and shoulders. There is no demonstrated abnormality of the visualized soft tissue structures of the upper abdomen. RAD/CXR for Line Placement IMPRESSION: The tip of the right-sided xiao catheter is at the junction of the superior vena cava and right atrium. Electronically Signed: Dyllan Beaulieu MD at 10:36 EDT ,
== END 2023-07-13 11:00 | disposition home or self-care (01) ==
LOC: SDC 06:01 → AC 06:02
PROVIDERS: PCP Family Medicine; Referring Provider Surgery; Visit Provider Surgery
PROC: (CPT 36561; principal; 2023-07-13 08:45)
DX: Z45.2 Encounter for adjustment and management of vascular access device (principal); C77.9 Secondary and unspecified malignant neoplasm of lymph node, unspecified; C50.912 Malignant neoplasm of unspecified site of left female breast; R73.03 Prediabetes; Z79.899 Other long term (current) drug therapy
CPT/HCPCS: 36561; 00532; 71045; 77001; J7120; C1788; J2405

== ENCOUNTER → 2023-07-19 | Outpatient (CLI) | payer OTHER, SELFPAY ==
--- NOTE | 2023-07-19 15:00 | MRI_ITS ---
EXAM: MR HEAD WITHOUT AND WITH INTRAVENOUS CONTRAST CLINICAL INDICATION: breast cancer staging TECHNIQUE: Multiplanar and multisequence MR images of the brain were obtained without and with intravenous contrast. Magnetic field strength 1.5 T. CONTRAST: 17 cc of Clariscan IV. COMPARISON: No relevant prior studies available. FINDINGS: BRAIN AND EXTRA-AXIAL SPACES: Unremarkable. No intra- or extra-axial hemorrhage. No evidence of acute infarct. No intracranial mass or mass effect. There is preservation of the padilla/white matter interface. Posterior fossa structures are unremarkable. Ventricles are appropriate for age. No hydrocephalus. Basal cisterns are patent. SELLA: Unremarkable. Normal sella turcica, pituitary gland, infundibular stalk, optic chiasm and hypothalamus. AUDITORY SYSTEM: Unremarkable. The internal auditory canals are patent. BONES/JOINTS: Unremarkable. No discrete lytic or blastic abnormalities. SINUSES: Unremarkable as visualized. Clear. MASTOID AIR CELLS: Unremarkable as visualized. Clear. ORBITS: Unremarkable as visualized. Both globes, extraocular muscles, optic nerves and retrobulbar fat appear unremarkable. VASCULATURE: Unremarkable as visualized. Normal flow voids in the major intracranial circulation. MRI/Brain W/WO Contrast IMPRESSION: Negative MRI brain without and with intravenous contrast. Electronically Signed: Daryl Salas MD at 9:15 EDT ,
== END | disposition home or self-care (01) ==
PROVIDERS: PCP Family Medicine; Visit Provider Internal Medicine Medical Oncology
DX: C50.912 Malignant neoplasm of unspecified site of left female breast (principal)
CPT/HCPCS: 70553; A9575; A4216

== ENCOUNTER → 2023-10-11 | Outpatient (CLI) | payer OTHER, SELFPAY ==
--- NOTE | 2023-10-11 10:17 | ECHODONC_ITS ---
Reason For Study: Chemotherapy Procedure This was a 2D Doppler, Color Flow transthoracic echocardiogram. Myocardial strain analysis was performed in this exam to aid in the assessment of cardiac function. The study was technically difficult. Exam performed in department. Left Ventricle Normal LV size. Left ventricular systolic function is normal. The estimated ejection fraction is 55 %. Stage 1 diastolic dysfunction. No regional wall motion abnormalities noted. Right Ventricle Normal RV size. Normal systolic function. Atria Normal left atrium. Normal right atrium. Mitral Valve Normal mitral valve. Tricuspid Valve Normal tricuspid valve. Mild (1+) tricuspid valve insufficiency. Pulmonary artery systolic pressure is 28 mmHg. Aortic Valve Normal aortic valve. Trisinus/trileaflet aortic valve. Pulmonic Valve Normal pulmonic valve. Great Vessels Normal aortic root. The pulmonary artery is normal size. Normal inferior vena cava. Pericardium/Pleural No pericardial effusion. MMode/2D Measurements & Calculations LVIDd: 3.8 cm IVSd: 1.0 cm Ao root diam: 3.0 cm LVIDs: 2.5 cm LVPWd: 0.94 cm LA dimension: 3.6 cm RVDd: 3.5 cm FS: 35.2 % LAV(MOD-bp): 48.2 ml LA A4 area: 17.1 cm2 RA A4 area: 13.3 cm2 LAV(MOD-bp) Indexed: 25.0 ml/m2 LAV(MOD-sp2): 42.8 ml LAV(MOD-sp4): 49.6 ml TAPSE: 2.0 cm Time Measurements MV dec time: 0.19 sec Doppler Measurements & Calculations MV E max edd: 67.1 cm/sec Lat Peak E' Edd: 10.9 cm/sec Med Peak E' Edd: 5.3 cm/sec MV A max edd: 84.8 cm/sec E/E' lat: 6.2 E/E' med: 12.8 MV E/A: 0.79 MV V2 max: 109.7 cm/sec MV P1/2t max edd: 90.8 cm/sec Ao V2 max: 148.1 cm/sec MV max P.8 mmHg MV P1/2t: 68.1 msec Ao max P.8 mmHg MV V2 mean: 59.9 cm/sec Ao V2 mean: 98.5 cm/sec MV mean P.7 mmHg MV dec slope: 390.7 cm/sec2 Ao mean P.5 mmHg MV V2 VTI: 22.7 cm MVA(P1/2t): 3.2 cm2 Ao V2 VTI: 27.6 cm AV (velocity ratio): 0.95 LV V1 max: 131.5 cm/sec PA V2 max: 99.4 cm/sec TR max edd: 243.8 cm/sec LV V1 max P.9 mmHg PA V2 mean: 70.0 cm/sec TR max P.8 mmHg LV V1 mean P.6 mmHg LV V1 mean: 88.9 cm/sec LV V1 VTI: 26.2 cm ECHO/ONC Echo Complete Interpretation Summary Normal LV size. Left ventricular systolic function is normal. The estimated ejection fraction is 55 %. Stage 1 diastolic dysfunction. The global longitudinal strain is normal. The global longitudinal strain = -17. 1 % (normal). Ordering Physician: Cece Hobbs Referring Physician: Cece Hobbs Performed By: Osvaldo Jalloh RCS
== END | disposition home or self-care (01) ==
LOC: CVS 10:17
PROVIDERS: PCP Family Medicine; Referring Provider Nurse Practitioner Family; Visit Provider Nurse Practitioner Family
DX: Z51.81 Encounter for therapeutic drug level monitoring (principal); Z79.899 Other long term (current) drug therapy
CPT/HCPCS: 93306; 93356

== ENCOUNTER → 2023-11-26 | Outpatient (CLI) | payer OTHER, SELFPAY ==
--- NOTE | 2023-11-26 10:10 | MRI_ITS ---
STUDY: BILATERAL BREAST MR WITHOUT AND WITH CONTRAST REASON FOR EXAM: Female, 53 years old. Breast cancer status post chemotherapy. Preoperative evaluation. TECHNIQUE: Multi-sequence multi-echo imaging of both breasts was performed with a dedicated breast coil. T1-weighted and T2-weighted images were performed before the administration of contrast. T1-weighted images were also performed after the intravenous administration of 18cc of Clariscan contrast. COMPARISON: Bilateral mammogram dated 06/01/2023, left breast ultrasound dated 06/06/2023 and prior breast MRI with contrast dated 07/02/2023. FINDINGS: RIGHT BREAST: Fatty replaced breast tissue with minimal background enhancement. No abnormal enhancing masses or areas of non-mass enhancement in the right breast. LEFT BREAST: Fatty replaced breast tissue with minimal background enhancement. Complete resolution of large extensive area of nodular and non-mass enhancement of the upper inner and upper outer quadrants of the left breast. No residual abnormal enhancing masses or residual areas of non-mass enhancement are now present. No enlarged or abnormal lymph nodes. No abnormality in the visualized regions of the chest or liver. MRI/Breast Bilateral W/O and W IMPRESSION: No abnormal enhancing regions in either breast. No adenopathy and no abnormality of the liver. CATEGORY: BIRADS Category 6: Known Biopsy-Proven Malignancy - Appropriate Action Should Be Taken. A letter regarding these results will be sent to the patient by the facility within 30 days. Electronically Signed: Javed Taylor MD at 13:10 EST ,
== END | disposition home or self-care (01) ==
LOC: MRI 10:10
PROVIDERS: PCP Family Medicine; Referring Provider Internal Medicine Hematology & Oncology; Visit Provider Internal Medicine Hematology & Oncology
DX: C50.912 Malignant neoplasm of unspecified site of left female breast (principal); C77.9 Secondary and unspecified malignant neoplasm of lymph node, unspecified
CPT/HCPCS: 77049; A9575; A4216; C8908

== ENCOUNTER 2023-12-24 11:35 | Observation (INO) | payer OTHER, SELFPAY ==
--- NOTE | 2023-12-17 07:00 | EKG12_ITS ---
Test Reason : PREOP Blood Pressure : / mmHG Vent. Rate : 093 BPM Atrial Rate : 093 BPM P-R Int : 138 ms QRS Dur : 080 ms QT Int : 352 ms P-R-T Axes : 038 004 016 degrees QTc Int : 437 ms Normal sinus rhythm Normal ECG Confirmed by Daryl Cheung ([id number]), editor sound MOR CHRISTOPHER ([id number]) on 12/18/2023 7:19:11 AM Referred By: Lalo Zelaya Confirmed By:Daryl Cheung
[2023-12-24] VITALS (15 sets, daily range): BP systolic 106–142; BP diastolic 67–88; PULSE 92–119; RESP 16–18; TEMP 36.2–37.1; O2SAT 93–98; BMI 34.0; BMI 34.3
--- NOTE | 2023-12-24 | BREAST_PTH ---
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 Lalo Zelaya MD : 1970 BED: 1 DIS: 12/25/2023 SPEC #: [id number] RECD: 12/24/23 10:26 STATUS: BASIM SOLIS #: [id number] HALIE: 12/24/23 00:[address]: Lalo Zelaya DEPT: SURGICAL PATHOLOGY RECD BY: Evangelista Ivy ENTERED: 12/24/23 10:40 SP TYPE: BREAST OTHR DR: Dr. Brice Floyd MD Tissues: A - Right breast, NOS B - Left breast, NOS C - Axillary lymph node, NOS Procedures: Surgery Specimen Level IV Surgery Specimen Level V HEADER OPERATION: Bilateral mastectomy and left axillary dissection PRE-OP DIAGNOSIS: Regional lymph node metastasis present, Invasive ductal carcinoma of left breast TISSUE SUBMITTED: A- Right breast, long stitch sarmiento lateral, short stitch sarmiento superior, B- Left breast with inferior breast tissue, long sarmiento lateral, short stitch sarmiento superior, C- Left axillary contents MICROSCOPIC DIAGNOSIS A. Right breast, mastectomy; Intramammary lymph node with reactive change. Adenosis, fibrocystic change and banal microcalcifications. No evidence of malignancy. Skin and nipple with no pathologic change. See comment. B. Left breast, mastectomy; Ductal carcinoma in situ (grade3/3) Intraductal hyperplasia with focal atypia. Fibrocystic change, adenosis and banal microcalcifications. No evidence of residual invasive carcinoma. See synoptic report below. C. Left axillary lymph node dissection, regional lymphadenectomy; Fourteen of fourteen lymph nodes, negative for carcinoma. See comment. COMMENT A. Immunohistochemistry ([id number]) supports the above diagnosis. C. Four out of fourteen lymph nodes show focal fibrosis which may represent therapeutic effect. B. BREAST CANCER SUMMARY - INCLUSIVE OF PREVIOUS LEFT BREAST BIOPSY ([id number]) Procedure: Current mastectomy and previous biopsy Current Specimen: Type: Total breast Size: 29.0 x25.0 x 7.0 cm Laterality: Left breast Tumor site: Not identified Size: Not applicable. No invasive tumor seen. Focality: Presumed Single focus of invasive carcinoma Histologic type: No invasive carcinoma seen in present biopsy however invasive ductal carcinoma measuring 13.5mm is identified in the previous breast biopsy ([id number]) Histologic grade (Fady grade) based on previous biopsy([id number]) Glandular/tubular differentiation score: 3 Nuclear pleomorphism score: 3 Mitotic count score: 1 Overall grade: 2 (score of 7) Lymphvascular invasion: Ductal Carcinoma In Situ: Noted focally in present mastectomy Estimated quantitation (extent): 1.2 x 0.5 millimeters. Number of blocks: 2 of 20 blocks Architectural pattern: Cribriform Nuclear grade: 3/3 Necrosis: Not present Lobular Carcinoma In Situ: Not identified. Tumor extension: Skin: Free of carcinoma Nipple: Free of in carcinoma Skeletal muscle: No skeletal muscle present Margins Involved by Invasive Carcinoma: Not applicable (no residual tumor in resected specimen). Presumed area of previous biopsy change is approximately 2.0 cms from superior margin. Lymph Nodes: Number of sentinel lymph nodes examined: No sentinel lymph nodes submitted. Total number of lymph nodes examined: 15 (14 from present axillary dissection and 1 lymph node from previous core biopsy ([id number]) No evidence of macrometastases, micrometastases or isolated tumor cells in present mastectomy. Metastatic carcinoma is identified in previous lymph node core biopsy measuring 6.0 millimeters in greatest dimension Extra josué extension: Not identified. See specimens C and previous biopsy ([id number]) Microcalcifications: Present in benign breast parenchymal. Treatment Effect: Present. No residual invasive carcinoma in mastectomy and most notable in four out of 20 lymph nodes from present axillary dissection, specimen `C' which show partial fibrosis. Lymph vascular invasion: Not identified Additional Pathologic Findings: Intraductal hyperplasia with focal atypia, adenosis, fibrocystic change Focal fibrosis with benign histiocytic reaction consistent with previous biopsy site. Ancillary Studies: Previously performed on same tumor ([id number]) ER: 90% strong intensity MO: 45% moderate intensity Mvi0xvt: 3+ positive Ki67: positive at 40% Clinical History: Mass of left breast Note: Patient's history of six cycles of neoadjuvant systemic therapy with THCP is noted. PATHOLOGIC STAGE: T2 N1a Mx (inclusive of previous biopsy and current mastectomy) The above summary is in compliance with [employer] (CAP) Cancer Protocol Checklist and [place] Joint Committee on Cancer (AJCC) Staging Manual, 8th Ed. MICROSCOPIC DESCRIPTION Slides are reviewed. GROSS DESCRIPTION A. Received in fixative is one container labeled with the patient's name and designated Right breast. The specimen consists of a mastectomy specimen consisting of breast tissue with overlying skin ellipse. Breast tissue measures 28.0 x 24.0 x 6.0 cm. Skin ellipse measures 24.0 x 19.0 cm and the nipple measures 2.0cm. A reddish-brown skin lesion is noted in the lower outer quadrant measuring 0.4 cm in greatest dimension. Two small brown lesions are also noted measuring 0.1 cm in greatest dimension. The specimen is inked as follows: posterior - black, superior - blue, inferior - green, medial - red and lateral - orange. Sections of the breast tissue reveal lake-yellow adipose cut surfaces mixed with scant fibrous areas. A nodule is noted consistent with lymph node in the axillary area measuring 1.5 cm in greatest dimension. No obvious mass is noted in the breast tissue. Two pieces of skin with underlying breast tissue are also noted. First piece, the breast tissue measures 10.0 x 4.0 x 1.5 cm and skin piece measures 7.0 x 1.0 cm. Second piece, skin piece measures 16.5 x 3.5 cm and the breast tissue measures 15.0 x 5.0 x 3.0 cm. [facility] 12/24/23 Sections of breast tissue and detached pieces of tissue do not reveal any obvious mass lesion. Drawing Kil[employer] Supervisor sections are submitted in 14 cassettes as follows: 1- Nipple entirely submitted, 2- skin lesion x3, 3-5- lateral portion of breast, 6-9- middle portion breast, 10-12- medial portion breast, 13&14- one bisected lymph node. / / 12/25/23 B. Received in fixative is one container labeled with the patient's name and designated Left breast with inferior breast tissue. The specimen consists of mastectomy specimen consisting of breast tissue with overlying skin ellipse. The breast tissue measures 29.0 x 25.0 x 7.0 cm. The nipple measures 1.5cm in greatest dimension. No skin lesion is identified. Also present in the container is a piece of adipose tissue identified inferior breast tissue that measures 15.0 x 5.0 x 1.0cm. The specimen is inked as follows: posterior - black, superior - blue, inferior - green, medial - red and lateral - orange. More dictation will follow after fixation. [facility] 12/24/23 No obvious mass lesion or biopsy cavity is identified. A focal fibrous area is noted in the central portion of the breast tissue. This fibrous area is 3 cm away from the closest posterior margin. Drawing Kiln Supervisor sections are submitted in 20 cassettes as follows: 1- Nipple entirely submitted, 2&3-perpindicular margins and skin, 4-20- fibrous areas. Sections are submitted after additional fixation. [facility] 12/25/2023 C. Received in fixative is one container labeled with the patient's name and designated Left axillary contents. The specimen consists of a piece of adipose tissue measuring 11.0 x 9.0 x 3.0cm. Multiple nodules consistent with lymph nodes are identified, largest measuring 2.5 cm in greatest dimension. Lymph nodes are submitted in entirely in 10 cassettes as follows: 1- One bisected lymph node, 2&3- One serially sectioned lymph node, 4- One bisected lymph node, 5-One bisected lymph node, 6- One bisected lymph node,7- One serially sectioned lymph node, 8- One bisected lymph node, 9-One bisected lymph node, 10- Multiple lymph nodes. [facility] 12/24/23 More sections are submitted as follows 11- two lymph nodes, 12&13- one possible serially section lymph node. [facility] 12/25/23 TC:0 CPT:
--- NOTE | 2023-12-24 | IMM_PTH ---
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 Lalo Zelaya MD : 1970 BED: 1 DIS: 12/25/2023 SPEC #: [id number] RECD: 12/27/23 13:48 STATUS: BASIM REQ #: [id number] HALIE: 12/24/23 00:[address]: Lalo Zelaya DEPT: IMMUNOHISTOCHEMISTRY RECD BY: Jaziel Trevino ENTERED: 12/27/23 13:52 SP TYPE: IMMUNO OTHR DR: Dr. Brice Floyd MD Tissues: A - Right breast, NOS C - Axilla, NOS Procedures: CALPONIN-1 (add) CD20 (add) CD3 (add) CD45 (add) CD5 (add) CD79A (add) CK8 (add) Pankeratin (initial) Pankeratin (add) P40 (add) PHYSICIAN & [address] [address] SPECIMEN INFORMATION: Tissue Source: A. Right breast, C. Left axillary contents Clinical Info: Regional lymph node metastasis present, Invasive ductal carcinoma of left breast Specimen Number: [id number] A13, A5, C1-C11 CPT code: 07722 x3, 22990 x23 METHODOLOGY: Deparaffinized sections of prefer/formalin-fixed tissue or PAP/DQ stained slides are incubated with monoclonal/polyclonal antibodies/oligonucleotide probes. Localization is made via biotin free immunoperoxidase method. Appropriate controls are performed and reacted as expected. Results on target cell population are indicated in the following table: RESULTS: ANTIBODY / CLONE RESULT Block A 13 CD3 (PS1) positive CD5 (SP10) positive CD20 (L26) positive CD45 (RP2/18) positive CD79a (11E3) positive AE1-3 (AE1/AE3/PCK26) positive Block A5 P40 (BC28) positive Calponin-1 (EA111P) positive Block C1 AE1-3 (AE1/AE3/PCK26) negative CK8 (23aknlI03) negative Block C2 AE1-3 (AE1/AE3/PCK26) negative CK8 (29myciY13) negative Block C3 AE1-3 (AE1/AE3/PCK26) negative CK8 (78zmxdV21) negative Block C4 AE1-3 (AE1/AE3/PCK26) negative CK8 (71hwjkR09) negative Block C5 AE1-3 (AE1/AE3/PCK26) negative CK8 (68vijwD22) negative Block C6 AE1-3 (AE1/AE3/PCK26) negative CK8 (17spriQ38) negative Block C7 AE1-3 (AE1/AE3/PCK26) negative CK8 (89mlwfY06) negative Block C8 AE1-3 (AE1/AE3/PCK26) negative CK8 (11ksezW92) negative Block C9 AE1-3 (AE1/AE3/PCK26) negative CK8 (35ibzdU79) negative Block C10 AE1-3 (AE1/AE3/PCK26) negative CK8 (60bnvoN89) negative Block C11 AE1-3 (AE1/AE3/PCK26) negative CK8 (38nbknM79) negative These tests were developed and their performance characteristics determined by [facility]. They may not have been cleared or approved by the U.S. Food and Drug Administration. The FDA has determined that such clearance or approval is not necessary. The above immunohistochemical/dualISH markers are ordered and reviewed by the Pathologist. INTERPRETATION: A. Right breast, mastectomy: Benign breast tissue. Reactive inflammatory lymph node. C. Left axillary contents: Fourteen of fourteen mph nodes, negative for carcinoma. Partial fibrosis in four of fourteen lymph nodes suggestive of therapeutic effect. AM:tom 12/28/2023
[2023-12-24] MEDS: Lactated Ringers 1,000 ML 15 ML IV ×2 (06:40→09:35)
--- NOTE | 2023-12-24 06:51 | HP.PCM_ITS ---
History and Physical Date of Admission: 12/24/23 Intake Vital Signs 11/08/2407:52 :56 12/06/2413:56 Height 5 ft 4 in 5 ft 4 in 5 ft 4 in Weight: 199 lb 3 oz 199 lb BMI 34.2 34.1 BP 114/76 Blood Pressure Location Lt brachial Position Sitting Respiration 18 16 Pulse 78 Pulse Source Monitor Temp 97.2 F L Pulse Oximetry (%) 98 Oxygen Delivery Method room air Intake Visit Reasons: DISCUSS SURGERY, MASTECTOMY Chief Complaint: discuss surgery Auto Body Man Required: No Is patient in pain?: No Allergies Iodinated Contrast Media Allergy (Mild, Verified 12/07/23 14:56) Scratchy throat, lip numbnessfluticasone [From Advair Diskus] Allergy (Verified 12/07/23 14:56) Anaphylaxispromethazine Allergy (Verified 12/07/23 14:56) Unknownsalmeterol [From Advair Diskus] Allergy (Verified 12/07/23 14:56) Anaphylaxislatex Adverse Reaction (Verified 12/07/23 14:56) Hives Medications escitalopram oxalate 10 mg tablet (Lexapro) 10 mg PO DAILY 06/08/23 [History Confirmed 12/07/23] lorazepam 0.5 mg tablet (Ativan) 0.5 mg PO TID PRN anxiety 06/20/23 [History Confirmed 12/07/23] melatonin 10 mg capsule 10 mg PO QHS 07/04/23 [History Confirmed 12/07/23] lidocaine-prilocaine 2.5 %-2.5 % topical cream 1 applic topical ONCE PRN port access 30 days #30 grams 07/16/23 [Rx Confirmed 12/07/23] potassium chloride 20 mEq tablet,extended release 20 meq PO TID #30 tabs 11/23/23 [Rx Confirmed 12/07/23] PFSH Medical History Alcohol use Anxiety Arthritis Bone pain due to G-CSF Borderline diabetes Cancer CINV (chemotherapy-induced nausea and vomiting) Cold sensitivity Dehydration Diarrhea Diverticulosis Encounter for chemotherapy management Encounter for education Encounter for monitoring cardiotoxic drug therapy Hay fever Heartburn Hemorrhoids History of echocardiogram History of edema Hx of fracture of leg Hypokalemia Kidney atrophy Low iron Non-smoker Pancreatitis 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 Shortness of breath on exertion Wears glasses Surgical History History of 2 sections History of cholecystectomy History of endometrial ablation History of ERCP History of tonsillectomy and adenoidectomy Hx of colonoscopy Family History Father Diabetes Parkinson's plus syndromeMother Asthma Hypertension Diabetes Alzheimer disease Social History Smoking Status: Never smoker alcohol intake: never details: Special occasions substance use type: does not use caffeine: Yes (6 cups daily ) Type: coffee what type of physical activity do you participate in: walking HPI HPI HPI: Patient is a 53-year-old female after neoadjuvant therapy for breast cancer. Patient completed her neoadjuvant therapy and had MRI which showed complete pathologic response. Patient is here to discuss surgery. ROS General General: No weight change, appetite, fatigue, colon cancer, breast cancer or weakness HEENT HEENT: No difficulty swallowing, eye injury, eye surgery, swollen glands or hoarseness Endo Endocrine: No thyroid disease, diabetes mellitus, thyroid cancer, Hair loss, heat intolerance or cold intolerance Skin Skin: Yes rash; No changing moles Breast Breast: Yes left breast lump, abnormal mammogram and abnormal US; No right breast lump, nipple discharge, breast pain or breast enlargement Musc Musculoskeletal: Yes arthritis; No back problems, rheumatoid arthritis, gout or joint pain Cardio Cardiovascular: No murmur, pacemaker, heart disease, atrial fibrillation, high blood pressure, heart attack, heart stent, palpitations, shortness of breat with exertion or chest pain Psych Psychiatric: Yes anxiety; No depression or hearing voices Resp Respiratory: No shortness of breath, No sleep apnea, No cough, No COPD, No asthma, No emphysema and No wheezing Gastro Gastrointestinal: No abdominal pain, No nausea or vomiting, No diarrhea, No constipation, No blood in stool, No acid reflux, Yes hemorrhoids, No ulcers, Yes gallbladder problem and No black,tarry stools [place] Hematologic: No blood thinners, No blood disorders, No bleeding, No anemia and No blood clots Neuro Neurologic: No system reviewed and no additional complaints, except as documented, No as per HPI, No abnormal gait, No abnormal hearing, No abnormal movements, No abnormal speech, No behavioral changes, No burning sensations, No confusion, No convulsions, No disequilibrium, No dizziness, No localized weakness, No frequent falls, No headache(s), No lack of coordination, No loss of vision, No memory loss, No numbness, No other visual disturbances, No radicular pain, No restless legs, No sensory deficit, No syncope, No tingling, No t remor(s), No weakness and No other Exam Const General: cooperative Orientation: alert and oriented x3 [facility] Head: normal to inspection Neck Neck: normal visual inspection and full ROM Chest Chest palpation & inspection: normal inspection of the chest Resp Effort & Inspection: normal respiratory effort Auscultation: clear to auscultation bilaterally Cardio Rate: regular rate Rhythm: regular rhythm GI Inspection: non-distended Palpation: soft and nontender Skin General: no rashes or lesions noted Neuro General: patient alert and patient oriented x3 Extrem General: full ROM Psych Appearance: grossly normal Mental Status: mental status grossly normal Assessment and Plan Assessment and Plan (1) Regional lymph node metastasis present: Status: Chronic (2) Invasive ductal carcinoma of left breast: Status: Chronic Plan The patient has breast cancer on the left which was biopsied and treated as inflammatory originally. The patient had a PET scan which showed several positive lymph nodes on the left as well as several masses on the left. Patient also wants a right prophylactic mastectomy. I discussed right simple mastectomy as well as left modified radical mastectomy with the patient in detail. I discussed the risks of the procedure such as bleeding, infection, hematoma formation, nerve injury, lymphedema. Patient understands the risks and is willing to proceed. I discussed the increased risks of lymphedema and nerve injury with axillary dissection. Lalo Zelaya MD Pager: [facility] [address] [place] [address], [address] [place] [address] Office: I have examined the patient and the H&P has been reviewed. There are no clinical changes since date of exam.
[2023-12-24] MEDS: Cefazolin 2 GM in 0.9% Normal Saline (100mL Bag) 100 ML IV (07:35)
[2023-12-24] MEDS: Bupivacaine 0.25% 30 ML Vial (10:15)
--- NOTE | 2023-12-24 11:41 | OP.PCM_ITS ---
Report of Operation Date of Procedure: 12/24/23 Pre-Operative Diagnosis: Left breast cancer with metastasis Post-Operative Diagnosis: Same Surgery/Procedure Performed:: 1. Left modified radical mastectomy with axillary dissection 2. Right prophylactic simple mastectomy Type of Anesthesia: General/Regional Specimen's removed: 1. Right breast 2. Left breast 3. Axillary contents from the left side Drains: BREE bilaterally to bulb suction Estimated Blood Loss (mL): 50 Description of Procedure: Patient was brought back to the operating room and anesthesia was induced. The bilateral breast and axillary areas were prepped and draped in usual sterile fashion. The prophylactic side was done first to make sure to maintain an noncancer field. The right side was marked and then a curvilinear incision was made around the breast including the nipple structure. The incision was made with a scalpel and electrocautery was used to obtain hemostasis. Next Andersons were used to raise the superior margin and the superior skin flap was created using electrocautery. Once the superior edge of the breast was reach the pectoral fascia was divided. Next inferiorly skin flap was raised in the same fashion using electrocautery and Adonay retractors. Once the breast was dissected free superiorly and inferiorly it was removed from the pectoral muscle including the pectoral fascia from medial to lateral fashion. The breast was marked and sent for pathology. The cavity was irrigated and suctioned dry and hemostasis was obtained using electrocautery. Next a 15 Burundian round drain was placed through a small stab incision in the right lower chest. It was sutured to the skin using 3-0 nylon suture. It was looped in the subcutaneous tissue and then the skin dermal layer was closed with interrupted 3-0 Vicryl sutures. A Monocryl was used in a running fashion to close the skin. Dermabond was placed over the incision. Bulb was placed to suction. Next the left side was addressed. The incisions were marked similar to the other side an incision was made with a scalpel. Superior flap was raised using electrocautery and Adonay retractors. Next dissection was followed up into the superior portion of the breast and the pectoral fascia was divided. Next the inferior flap was made in the same fashion. The breast was then removed from the pectoral area from a medial to lateral fashion once the medial breast was removed it was divided and sent for pathology. Next axillary dissection was accomplished. Dissection was carried into the left axilla through the mastectomy incision. Flap was raised laterally and the latissimus muscle was encountered. Next dissection was carried superiorly until the axillary vein was encountered and then that was traced medially until the chest wall was reached. Once these were dissected inferiorly a little bit nerve dissection was taken out. The thoracodorsal nerve was easy to identify but it was hard to identify the long thoracic nerve. Once the nerves were identified dissection was carried inferiorly. Some of the small sensory nerves had to be sacrificed to perform the dissection. There was some enlarged lymph nodes both in level 1 and level 2. After the dissection was carried out the specimen was sent for pathology. The axilla was irrigated and suctioned dry. There is no bleeding. Next a drain was placed through the left lower chest and up into the cavity. There was looped around and then the tip of it was brought up into the axilla. It was sutured to the skin using 3-0 nylon suture. Next the skin incision was closed by closing the dermis with 3-0 Vicryl sutures and the epidermis with a running 4-0 Monocryl. Dermabond was applied. The drains were both placed to suction. Next fluffy bandages were placed and Gavin wrap was placed for compression. Patient was then taken to PACU in stable condition. Admit VTE Documentation VTE Mechan Device Prophylaxis: SCD's
[2023-12-24] MEDS: 0.9% Normal Saline (1000mL) 1,000 ML 60 ML IV (13:36)
[2023-12-24] MEDS: oxyCODONE 5 MG Tablet PO ×2 (15:34→20:20)
[2023-12-24] MEDS: Ketorolac 15 MG/ML Vial IV (20:19)
[2023-12-25 01:06] VITALS: BP 111/64; PULSE 94; RESP 18; TEMP 36.6; O2SAT 97
[2023-12-25] MEDS: Acetaminophen 325 MG Tablet 650 MG PO ×2 (01:16→05:38)
[2023-12-25] MEDS: oxyCODONE 5 MG Tablet PO ×2 (02:19→10:40)
[2023-12-25 04:55] VITALS: BP 110/66; PULSE 89; RESP 18; TEMP 36.7; O2SAT 96
[2023-12-25] MEDS: Ketorolac 15 MG/ML Vial IV (05:30)
[2023-12-25] MEDS: 0.9% Normal Saline (1000mL) 1,000 ML 60 ML IV (05:38)
[2023-12-25 07:38] VITALS: BP 109/59; PULSE 79; RESP 16; TEMP 36.6; O2SAT 97
[2023-12-25 07:58] LABS: Absolute Lymphocyte Count 1.42 X10^3/uL (0.83-4.51); Absolute Neutrophil Count 5.4 X10^3/uL (2.0-7.7); Basophil# 0.02 X10^3/uL; Basophil% 0.3 % (0-1); Eosinophil# 0.05 X10^3/uL; Eosinophils% 0.7 % (0-5); Hematocrit 31.9 % (37-47); Lymphocyte # 1.42 X10^3/ul (0.83-4.51); Lymphocyte % 18.9 % (19-41); Mean Corp Hgb Conc 31.3 g/dL (32-36); Mean Corpuscular Hgb 29.2 pg (27.0-32.0); Mean Platelet Vol. 10.4 fl (6.2-12.0); Monocyte# 0.61 X10^3/uL; Monocyte% 8.1 % (0-10); NRBC Flagged by Analyzer 0 % (0-5); Neutrophil % 71.6 % (47-70); Platelet Count 222 K/mm3 (150-450); RBC Distribution Width CV 12.8 % (11.6-14.6); RBC Distribution Width SD 43.8 fl (35.1-43.9); Red Blood Count 3.43 M/mm3 (4.2-5.4); White Blood Count 7.5 K/mm3 (4.4-11.0)
--- NOTE | 2023-12-25 07:59 | PN.SURG_ITS ---
Subjective Subjective Patient is doing well but she says she is feeling burning with urination. Pain is well-controlled on the oxycodone. Objective Data Objective Data Vital Signs: Vital Signs Temp Pulse Resp BP Pulse Ox O2 Del Method O2 Flow Rate 97.8 F 79 16 109/59 L 97 Room Air 2 12/25/23 07:38 12/25/23 07:38 12/25/23 07:38 12/25/23 07:38 12/25/23 07:38 12/25/23 07:38 12/24/23 12:57 Oxygen Flow Rate (L/min) 2 Oxygen Delivery Method Room Air Weight: 200 lb 2.876 oz Body Mass Index (BMI) 34.3 Intake & Output: Intake and Output for Last 24 Hours 12/23/23 12/24/23 12/25/23 23:59 23:59 23:59 Intake Total 2110 / 2510 1362 / 1362 Output Total 170 / 470 690 / 690 Balance 1940 / 2040 672 / 672 Lab / Micro Data 12/25/23 06:38 12/25/23 06:38 Labs: Laboratory Results - last 24 hr 12/25/23 06:38: WBC 7.5, RBC 3.43 L, Hgb 10.0 L, Hct 31.9 L, MCV 93.0, MCH 29.2, MCHC 31.3 L, RDW Std Deviation 43.8, RDW Coeff of Ave 12.8, Plt Count 222, MPV 10.4, Immature Gran % (Auto) 0.400, Neut % (Auto) 71.6 H, Lymph % (Auto) 18.9 L, Prentiss % (Auto) 8.1, Eos % (Auto) 0.7, Baso % (Auto) 0.3, Absolute Neuts (auto) 5.4, Absolute Lymphs (auto) 1.42, Nucleated RBC % 0 Physical Exam Const no apparent distress Resp normal respiratory effort GI soft to palpation and non-tender Extremity normal to inspection Assessment & Plan Assessment/Plan (1) Invasive ductal carcinoma of left breast: PLAN: The patient is doing well. She does say she is having burning with urination so I will check a UA. There was no Long placed during the surgery. Patient's incisions look clean dry and intact and her drains are serosanguineous. I will discharge her home today if her UA is negative. Lalo Zelaya MD Pager: [facility] [address] [place] [address], [address] [place] [address] Office:
--- NOTE | 2023-12-25 08:01 | DS.PCM_ITS ---
Providers Date of Admission: 12/24/23 Primary Care Physician: Dr. Brice Floyd MD Consultations 12/24/23 12:35 Consult: Onc/Wound/photographic editor Routine Comment: Comments:: please teach pt how to strip and measure drains Reason For Visit: Bilateral Mastectomy & left axillar Diagnosis Discharge Diagnosis (1) Invasive ductal carcinoma of left breast: Status: Chronic Code(s): C50.912 - Malignant neoplasm of unspecified site of left female breast Plan: The patient is doing well. She does say she is having burning with urination so I will check a UA. There was no Long placed during the surgery. Patient's incisions look clean dry and intact and her drains are serosanguineous. I will discharge her home today if her UA is negative. Lalo Zelaya MD Pager: [facility] [address] [place] [address], [address] [place] [phone] Office: Medications at Discharge Home Medications escitalopram oxalate 10 mg tablet (Lexapro) 10 mg PO DAILY 06/08/23 lorazepam 0.5 mg tablet (Ativan) 0.5 mg PO TID PRN anxiety 06/20/23 melatonin 10 mg capsule 10 mg PO QHS PRN sleep 07/04/23 lidocaine-prilocaine 2.5 %-2.5 % topical cream 1 applic topical ONCE PRN port access 30 days #30 grams 07/16/23 oxycodone 5 mg tablet 5 - 10 mg (1 - 2 x 5 mg) PO Q4H PRN PRN PAIN 1-10 5 days #30 tabs 12/25/23 Hospital Course Summary of Care Provided Hospital Course: The patient had bilateral mastectomy with left axillary dissection. Patient is doing well postoperatively. She will be sent home with drains and she will record the drain output and follow-up with me in 1 week. Weight / BMI Weight Weight: 200 lb 2.876 oz Body Mass Index (BMI) 34.3 ABG / Lab / Microbiology Data 12/25/23 06:38 12/25/23 06:38 Laboratory: Laboratory Results - last 24 hr 12/25/23 06:38: WBC 7.5, RBC 3.43 L, Hgb 10.0 L, Hct 31.9 L, MCV 93.0, MCH 29.2, MCHC 31.3 L, RDW Std Deviation 43.8, RDW Coeff of Ave 12.8, Plt Count 222, MPV 10.4, Immature Gran % (Auto) 0.400, Neut % (Auto) 71.6 H, Lymph % (Auto) 18.9 L, [place] % (Auto) 8.1, Eos % (Auto) 0.7, Baso % (Auto) 0.3, Absolute Neuts (auto) 5.4, Absolute Lymphs (auto) 1.42, Nucleated RBC % 0 D/C Instructions Discharge Diet: Light diet - advance as tolerated Discharge Activity: May Not Shower (sponge bathe while drains are in place) Lifting Restrictions: 15 lbs for 2 weeks Call your doctor if your incision/area has: Continuous Slow Oozing, Sudden Increased Bleeding, Increased Pain/ Swelling, Increased Redness, Foul Smelling Discharge and Swelling at the incision site Call your doctor if you observe: Fever of 101 or Higher Cleanse incision/area with: Soap & Water Drain: Suction Additional Dressing/Incision Instructions: Record drain output daily, strip drain twice a day. Tylenol and Ibuprofen for pain, Oxycodone for breakthrough pain Please Follow Up With: Lalo Zelaya MD When: Please call to schedule 1 week follow up appointment. [phone] Meaningful Use Info Meaningful Use Diagnoses (Choose all that apply): None applicable Discharge Plan Admission Admit Date/Time: 12/24/23 11:35 Attending Provider: Lalo Zelaya Primary Care Provider: Brice Floyd Discharge Orders/Prescriptions Prescriptions: New oxycodone 5 mg Tablet 5 - 10 mg PO Q4H PRN PRN (Reason: PAIN 1-10) 5 Days Qty: 30 0RF Continued escitalopram oxalate [Lexapro] 10 mg tablet 10 mg PO DAILY lorazepam [Ativan] 0.5 mg tablet 0.5 mg PO TID PRN (Reason: anxiety) lidocaine-prilocaine 2.5-2.5 % cream 1 applic topical ONCE PRN (Reason: port access) 30 Days Qty: 30 2RF melatonin 10 mg capsule 10 mg PO QHS PRN (Reason: sleep) Discontinued potassium chloride 20 mEq tablet extended release 20 meq PO PRN Referrals / Follow Up: Brice Floyd MD [Primary Care Provider] - Disposition Disposition (needs filled in before D/C Order can be placed): Home, Self Care
[2023-12-25 08:44] LABS: Anion Gap 9 (5-15); BUN 18 mg/dL (7-18); BUN/Creat Ratio 25.1 RATIO (10-20); Calcium,Total 8.8 mg/dL (8.5-10.1); Chloride 109 mmol/L (98-107); Creatinine, Serum 0.72 mg/dL (0.55-1.02); EST Glomerular Filtration Rate 90 mL/min (>60); Est Glom Filt Rate - Afr Amer 109 mL/min (>60); Estimated Creatinine Clearance 97.49 ml/min; Glucose 156 mg/dL (74-106); Potassium 3.5 mmol/L (3.5-5.1); Sodium Level 141 mmol/L (136-145)
[2023-12-25] MEDS: Escitalopram Oxalate 10 MG Tablet PO (09:34)
--- NOTE | 2023-12-25 10:00 | WOUNDNOTE ---
was asked to see patient for drain teaching and care. in for teaching. demonstrated milking the tubings and draining the bulb. patient aware to measure and record drainage. cleansed insertion sites with peroxide and applied split gauze followed by dry gauze dressings. secured dressings with Medipore tape. bilateral mastectomy incisions well approximated with dermabond. applied new dry dressings and wrapped with ANTONINO wrap. pt tolerated well. no further concerns voiced. patient and appreciative of care.
[2023-12-25 11:29] LABS: Color, Urine Yellow (Yellow); Glucose, Dipstick Normal (Normal); Ketone-Dipstick 5 mg/dl (Negative); Leukocyte Esterase-Dipstick 500 /ul (Negative); Nitrite-Dipstick Negative (Negative); Occult Blood-Urine 25 /ul (Negative); Protein-Dipstick 15 mg/dl (Negative); Specific Gravity, Urine 1.025 (1.002-1.030); Urine Bilirubin Dipstick Negative (Negative); Urine Clarity Clear (Clear); Urine Urobilinogen Normal (Normal)
[2023-12-25 11:44] LABS: Bacteria 1+ /hpf (None Seen); Mucous, Urine 2+ /hpf (<or=2+); Red Blood Cells-Urine 0-5 SEEN /hpf (0-5); Squamous Epithelial Cells - UA 0-5 SEEN /hpf (5-10); White Blood Cells 10-25 SEEN /hpf (0-5)
--- NOTE | 2023-12-25 13:02 | PCM.PN.BLA ---
Progress Note Pts urinalysis came back equivocal with some positive leuk esterase and +1 bacteria but negative nitrates. I will start her on some Cipro to go home on just in case this is an early UTI and follow-up on the culture. She may go home today.
[2023-12-25] MEDS: Ciprofloxacin 500 MG Tablet PO (13:17)
--- NOTE | 2023-12-25 13:24 | CASEMGMT ---
RN CM into pt room, pt sitting up in bed, nurse in room. Pt denies any homegoing needs. She states she feels comfortable with going home with drains. Pt states she and her cg were taught how to care for them.
[2023-12-25 13:32] VITALS: BP 125/84; PULSE 92; RESP 16; TEMP 36.8; O2SAT 98
--- NOTE | 2023-12-25 13:53 | CASEMGMT ---
Social Work SW met with pt to discuss advance directives.? Pt confirms she has completed a living will and health care POA naming her Daryl Viera.? Pt notified that documents are not on file at [facility] and SW requested they be brought in for scanning into the EMR.? LAYTON Fournier
--- NOTE | 2023-12-25 14:40 | PHA.DC_ITS ---
Pharmacy [place] Med Reconciliation Pharmacy Service has performed discharge medication reconciliation for this patient. Medication education papers prepared, patient discharged before I was able to investment counselor. Medications reviewed. The patient's discharge medication list was reviewed for discrepancies and discrepancies were resolved. Medications at Discharge Home Medications escitalopram oxalate 10 mg tablet (Lexapro) 10 mg PO DAILY 06/08/23 lorazepam 0.5 mg tablet (Ativan) 0.5 mg PO TID PRN anxiety 06/20/23 melatonin 10 mg capsule 10 mg PO QHS PRN sleep 07/04/23 lidocaine-prilocaine 2.5 %-2.5 % topical cream 1 applic topical ONCE PRN port access 30 days #30 grams 07/16/23 ciprofloxacin HCl 500 mg tablet 500 mg PO BID 5 days #10 tabs 12/25/23 oxycodone 5 mg tablet 5 - 10 mg (1 - 2 x 5 mg) PO Q4H PRN PRN PAIN 1-10 5 days #30 tabs 12/25/23
== END 2023-12-25 13:55 | disposition home or self-care (01) ==
LOC: SDC 11:50 → MS3 11:50
PROVIDERS: Admitting Provider Surgery; PCP Family Medicine; Referring Provider Surgery; Visit Provider Surgery
PROC: 0HBV0ZZ Excision of Bilateral Breast, Open Approach (ICD-10-PCS; CPT 19302; principal; 2023-12-24 07:15)
DX: C50.912 Malignant neoplasm of unspecified site of left female breast (principal); C77.9 Secondary and unspecified malignant neoplasm of lymph node, unspecified; Z79.899 Other long term (current) drug therapy; F41.9 Anxiety disorder, unspecified; R73.03 Prediabetes; Z40.01 Encounter for prophylactic removal of breast; R30.0 Dysuria
CPT/HCPCS: 19307; 19303; 00404; 36415; 80048; 81001; 83735; 85025; 88305; 88307; 88341; 88342; 93005; 94668; 96374; 96376; 99221; A4648; J7030; J7120; G0378; J2405

== ENCOUNTER → 2024-01-23 | Outpatient (CLI) | payer OTHER, SELFPAY ==
--- NOTE | 2024-01-23 10:48 | BD_ITS ---
STUDY: DUAL ENERGY X-RAY ABSORPTIOMETRY / DXA REASON FOR EXAM: Female, 53 years old. BREAST CANCER TECHNIQUE: Bone Mineral Density (BMD) measurements of lumbar spine and bilateral hips were obtained. COMPARISON: None. FINDINGS: Lumbar Spine (L1-L4): g/cm2 (1.086) / T-score (0.6) / Z-score (1.6) Findings are suggestive of normal bone density with a low fracture risk. Left Femur Total: g/cm2 (1.004) / T-score (0.5) / Z-score (1.2) Left Femoral Neck: g/cm2 (0.732) / T-score (-1.1) / Z-score (0.0) Right Femur Total: g/cm2 (0.947) / T-score (0.0) / Z-score (0.7) Right Femoral Neck: g/cm2 (0.778) / T-score (-0.6) / Z-score (0.4) BD/Dexa Bone Density Study IMPRESSION: The patient is considered osteopenic as outlined below according to World Enio Organization (WHO) criteria with a low fracture risk. Reference Information: The T-score is the number of standard deviations above or below the standard which is normal for young adults at their peak bone mineral density. The World Health Organization (WHO) interprets the T-scores as follows: Above -1 Normal bone density Between -1 and -2.5 Osteopenia Equal to / or below -2.5 Osteoporosis As a practical clinical guideline, osteopenia may be graded as follows: Mild -1 through -1.5 Moderate -1.6 through -2.0 Severe -2.1 through -2.4 The Z-score is the number of standard deviations above or below age-matched controls. A Z-score of less than -1.5 would be considered abnormal. References: 1. NIH Osteoporosis and Related Bone Diseases www osteo.org 2. International Society for Clinical Densitometry www iscd.org 3. National Osteoporosis Foundation www nof.org Electronically Signed: Dyllan Beaulieu MD at 9:41 EDT ,
== END | disposition home or self-care (01) ==
LOC: OPBD 10:48
PROVIDERS: PCP Family Medicine; Referring Provider Internal Medicine Hematology & Oncology; Visit Provider Internal Medicine Hematology & Oncology
DX: Z78.0 Asymptomatic menopausal state (principal)
CPT/HCPCS: 77080

== ENCOUNTER → 2024-01-25 | Outpatient (CLI) | payer OTHER, SELFPAY ==
--- NOTE | 2024-01-25 14:52 | ECHOLONC_ITS ---
Reason For Study: OTHER Procedure Myocardial strain analysis was performed in this exam to aid in the assessment of cardiac function. This was a limited 2D transthoracic echocardiogram. Technically difficult study due to recent mastectomy. Exam performed in department. Left Ventricle Normal LV size. Left ventricular systolic function is normal. The left ventricular ejection fraction is 70 %. No regional wall motion abnormalities noted. Right Ventricle Normal RV size. Normal systolic function. Atria Normal left atrium. Normal right atrium. Mitral Valve Normal mitral valve. Tricuspid Valve The tricuspid valve is not well visualized. Aortic Valve Normal aortic valve. Trisinus/trileaflet aortic valve. Pulmonic Valve Normal pulmonic valve. Great Vessels Normal aortic root. The pulmonary artery is normal size. Inferior vena cava collapse with respiration. Pericardium/Pleural No pericardial effusion. MMode/2D Measurements & Calculations LVIDd: 3.9 cm IVSd: 1.2 cm LAV(MOD-bp): 43.9 ml LVIDs: 2.1 cm LVPWd: 0.93 cm LAV(MOD-bp) Indexed: 22.9 ml/m2 FS: 46.4 % LAV(MOD-sp2): 47.3 ml LAV(MOD-sp4): 37.1 ml SV(MOD-sp4): 35.9 ml SV(sp4-el): 37.0 ml LVAd ap4: 21.6 cm2 LVLd ap4: 7.6 cm EDV(MOD-sp4): 51.1 ml EDV(sp4-el): 51.9 ml LVAs ap4: 9.7 cm2 LVLs ap4: 5.4 cm ESV(MOD-sp4): 15.2 ml ESV(sp4-el): 14.9 ml EF(MOD-sp4): 70.2 % EF(sp4-el): 71.3 % LA A4 area: 14.7 cm2 LA dimension(2D): 4.0 cm RA A4 area: 12.2 cm2 Doppler Measurements & Calculations PA V2 max: 120.6 cm/sec PA V2 mean: 80.2 cm/sec ECHO/ONC Echo, Limited Study Interpretation Summary Normal LV size. Left ventricular systolic function is normal. The left ventricular ejection fraction is 70 %. The global longitudinal strain is normal. The global longitudinal strain = -22. 5 % (normal). Ordering Physician: Osito Bullock Referring Physician: Osito Bullock Performed By: oZ Antoine RCS
== END | disposition home or self-care (01) ==
LOC: CVS 14:51
PROVIDERS: PCP Family Medicine; Referring Provider Internal Medicine Hematology & Oncology; Visit Provider Internal Medicine Hematology & Oncology
DX: C50.912 Malignant neoplasm of unspecified site of left female breast (principal); Z79.899 Other long term (current) drug therapy
CPT/HCPCS: 93308; 93356

== ENCOUNTER 2024-03-14 11:30 | Outpatient (RCR) | payer OTHER, SELFPAY ==
--- NOTE | 2024-01-14 16:48 | HP.OTEVAL_ITS ---
Patient's Visit Information Visit Information Visit Information: OMID WEAVER is a 53 year old F, referred to Occupational Therapy by Dr. Lalo Zelaya MD, with a diagnosis of breast cance. Date of Evaluation: 01/14/24 Occupational Therapist: AIMEE Valencia/Say, CHT Subjective Subjective: this 53 year old female was seen for OT eval with dx of Breast cancer, pt states December 24 2023 bilateral mastectomy- Pt states 14 lymph node removal. pt arrives 3 weeks s/p with reports of limited left UE ROM with a tightness and pulling sensation that radiates from her axillary to her wrist- pt states she is feeling better. Will follow up with to see what next steps will be. pt states she went through 6 rounds of chemo- the Mastectomy was following. pt is feeling good. 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 (board being at home) pt states she would like to know what she can do to improve her ROM - decrease symptoms of buring down her left arm and return to her PLOF with all ADls and IADLs. pt works at [employer] as insurance. Pain left UE: Current Pain Intensity: 1 Pain Intensity Range: 4 ROM Shoulder: right flexion 155 abd 135 left flexion 90 abd 65 Elbow: Right/left WNL Forearm: Right/left WNL Lymphedema (Circumferential Measure) MCP: right 18.5cm left 18.5cm Wrist: right 16cm left 16cm Lower forearm: right 18cm left 18.5cm Largest forearm: right 25cm left 24.5cm Elbow: right 24.5cm 25.5cm Largest humerus: right 31cm 33 cm Axcillary: right 35cm 35cm Quick DASH-Disab of Arm,Shoulder& Hand Quick DASH Score: 58.3325 Goals Goal: Patient will demonstrate a 20% reduction in edema by discharge: Yes Goal: Patient will demonstrate adequate knowledge of self-massage by the end of the second week.: Yes Goal: Patient will demonstrate adequate knowledge of skin care and precautions by the end of the first week.: Yes Goal: Patient will demonstrate adequate knowledge of therapeutic exercises by discharge.: Yes Goal: Patient will select an appropriate compression garment and demonstrate a dequate knowledge of correct donning technique, care and wearing schedule by discharge.: Yes Goal: Patient will voice understanding of need to replace compression garment every four to six months by discharge.: Yes Goal: Patient will demonstrate ROM WFL by discharge.: Yes Rehabilitation General Assessment: pt arrives 3 weeks s/p from a bilateral mastectomy demo with limited left UE ROM and with symptoms consistent with s/p mastectomy, axillary webbing syndrome. symptoms do radiate to her wrist with left shoulder ROM. This has limited pt with AROM and IADLs at this time. pt demo need for skilled OT services 2x week for 4 weeks to improve pts ROM, decrease symptoms of Axillary webbing as well as ed. pt on lymphedema mtg. pt demo understanding and agree to POC. Rehabilitation Potential: Good Anticipated Interventions Anticipated Interventions: A/AAROM/PROM, Edema Control, Scar Care, Triggerpoint Release, Desensitization, Education re assistive Equipment, Education re Diagnosis, Education re Life-long lymphedema Management, Education re Skin Care and Precautions, Education re Self Massage Techniques, Education re Correct Donning Tech,Care&Wearing Sched Comp Garments, Caregiver Training and Home Program Visit Plan Frequency: 1-2x /Week Duration: 4 Weeks General Plan: ROM scar mobilization manual scar mobilization to decrease axillary webbing symptoms. TEXT: Thank you for the opportunity to evaluate your patient. For Medicare and Medicare HMO plans, please review the plan of care and approve it. It will need to be FAXED BACK to us at [phone] for Medicare purposes. Please let me know if there are questions or concerns regarding this plan of care. Physician Signature: Date:
== END 2024-03-14 19:00 | disposition home or self-care (01) ==
LOC: OT 11:30
PROVIDERS: PCP Family Medicine; Referring Provider Surgery; Visit Provider Surgery
DX: Z90.13 Acquired absence of bilateral breasts and nipples (principal); I89.0 Lymphedema, not elsewhere classified
CPT/HCPCS: 97140; 97166; 97530

== ENCOUNTER 2024-04-21 09:01 | Day surgery (SDC) | payer OTHER, SELFPAY ==
[2024-04-21] VITALS (7 sets, daily range): BP systolic 85–109; BP diastolic 45–63; PULSE 63–83; RESP 16–18; TEMP 36.3–36.8; O2SAT 95–98; BMI 32.1
--- NOTE | 2024-04-21 09:24 | PCM.PRE.AN2 ---
ASA Classification* ASA Classification ASA Classification: 3 Assessment & Plan Anesthesia* Anesthesia Assessment Anesthesia Assessment: Discussed sedation and/or anesthesia options, risks, benefits, and alternatives with patient/parents/legal guardian/POA. Questions invited. The patient/parents/legal guardian/POA seems to understand and agrees to proceed with anesthesia plan. Reviewed the physical assessment, medical history, allergy history and patient home medications list prior to surgery/procedure/anesthetic and documented any changes. Performed airway and anesthesia risk assessments. Anesthesia Type Anesthesia Type: MAC (see written pre anesthesia record for full assessment) Anesthesia Focused Assessment* Airway Assessment Mouth opens: >3 cm Mallampati Score: II Focused Labs Anesthesia Preop lab: CBC WBC 4.0 K/mm3 (4.4-11.0) L 03/18/24 08:25 RBC 4.90 M/mm3 (4.2-5.4) 03/18/24 08:25 Hgb 13.0 g/dL (12.0-15.0) 03/18/24 08:25 Hct 40.2 % (37-47) 03/18/24 08:25 Plt Count 187 K/mm3 (150-450) 03/18/24 08:25 CHEMISTRY Potassium 4.0 mmol/L (3.5-5.1) 03/18/24 08:25 Sodium 138 mmol/L (136-145) 03/18/24 08:25 Magnesium 2.0 mg/dL (1.6-2.6) 12/25/23 06:38 Phosphorus 3.0 mg/dL (2.5-4.9) 10/25/23 08:05 BUN 20 mg/dL (7-18) H 03/18/24 08:25 Creatinine 0.73 mg/dL (0.55-1.02) 03/18/24 08:25 Glucose 145 mg/dL (74-106) H 03/18/24 08:25 TSH 0.85 uIU/mL (0.358-3.74) 05/25/17 12:03 COAG Pre-Assessment Diagnosis/Proposed Procedure Planned Operative Procedure(s): CSCOPE Anesthesia History Anesthesia History - radiological equipment specialist: Anesthesia History - radiological equipment specialist Hx Hospitalization No 04/15/24 10:36 Any Problems With Anesthesia Yes: SHAKINESS 04/15/24 10:36 Cholinesterase deficiency No 04/15/24 10:36 You/Your Family Experience No 04/15/24 10:36 fever (hyperthermia) with Relationship Recent Exposure to Contagious No 04/07/24 10:53 Disease Does patient have nerve No 04/15/24 10:36 stimulator Patient instructed to have device shut off --Does patient have Pacemaker or ICD? When Was Last Pacemaker Check QUESTION #4 FULL TEXT: You/Your Family Experience fever (hyperthermia) with Anesthesia Last Oral Intake Last Oral intake: Last Oral Intake NPO since Meds taken in AM with sips of water? Meds patient instructed to take am of surgery PONV PONV - radiological equipment specialist: PONV - radiological equipment specialist Female Yes 04/15/24 10:36 HX of Motion Sickness No 04/15/24 10:36 HX of N/V After Surgery No 04/15/24 10:36 Non-Smoker Yes 04/15/24 10:36 Duration of Surgery greater No 04/15/24 10:36 than 60 minutes Number of Risk Factors 2 04/15/24 10:36 PONV Score Moderate Risk 04/15/24 10:36 Height & Weight Height & Weight: Anesthesia: Height & Weight Height 5 ft 4 in 04/07/24 10:53 Respiratory Assessment Respiratory Assessment - radiological equipment specialist: Respiratory Tract Infection Hx - radiological equipment specialist Hx Respiratory Tract Infection No 04/15/24 10:36 STOP Sleep Apnea STOP Sleep Apnea - radiological equipment specialist: STOP Sleep Apnea - radiological equipment specialist Hx Hypertension No 04/15/24 10:36 Hx Sleep Apnea No 04/15/24 10:36 CPAP BIPAP Do you snore loudly (louder Yes 04/15/24 10:36 than talking or can be heard Do you often feel tired/ No 04/15/24 10:36 fatigued/ sleepy during daytime? Has anyone observed you stop No 04/15/24 10:36 breathing during sleep? STOP Results Negative 04/15/24 10:36 QUESTION #5 FULL TEXT : Do you snore loudly (louder than talking or can be heard through closed doors)? Tobacco Use History Tobacco Use History - radiological equipment specialist: Tobacco Use History - radiological equipment specialist Tobacco Use Smoking Status Never smoker 04/15/24 10:36 Hx Tobacco Use No 04/15/24 10:36 Years Smoking Packs Smoked per Day Smoking Cessation Date was within the last 15 years Hx Smoking Cessation Date Hx Smoking Cessation Counseling Hematologic Medial History Hematologic Hx - radiological equipment specialist: Hematologic Medical Hx - electrical design technician Hx of Blood Transfusion No 04/15/24 10:36 Hx of Transfusion in last 3 No 04/15/24 10:36 Months Date of Last Transfusion (if within last 3 months) Ever experience any problems No 04/15/24 10:36 with transfusion(s)? Specify any problems Hx of Preganancy in last 3 No 04/15/24 10:36 Months Nurse Filling Out Transfusion DSCHRIBER 04/15/24 10:36 & Questions: Date: 04/15/24 04/15/24 10:36 Time: 10:37 04/15/24 10:36 Patient unable to answer at this time (ie. 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 Hypokalemia Dehydration Bone pain due to G-CSF CINV (chemotherapy-induced nausea and vomiting) Encounter for monitoring cardiotoxic drug therapy Encounter for chemotherapy management Encounter for education Wears glasses Anxiety Alcohol use Cancer Peau d'orange over breast Arthritis Low iron Diverticulosis Heartburn Non-smoker History of edema History of echocardiogram Hx of fracture of leg Borderline diabetes Cold sensitivity Pancreatitis Kidney atrophy Diarrhea Home Medications ?Medication ?Instructions ?Recorded ?Last Taken ?Type escitalopram oxalate 10 mg tablet 10 mg PO DAILY 06/08/23 12/23/23 08:00 History (Lexapro) lidocaine-prilocaine 2.5 %-2.5 % 1 applic topical ONCE PRN port 07/16/23 Unknown Rx topical cream access 30 days #30 grams cetirizine 10 mg tablet (Zyrtec) 10 mg PO BID PRN PRN allergy 02/04/24 Unknown History symptoms hydroxyzine HCl 25 mg tablet 50 mg PO QHS PRN PRN sleep 02/04/24 Unknown History anastrozole 1 mg tablet 1 mg PO DAILY #30 tabs 03/24/24 Unknown Rx calcium carbonate 600 mg-vitamin 1 cap PO DAILY 04/15/24 Unknown History D3 5 mcg (200 unit) capsule (Calcium 600 + D(3)) melatonin 10 mg tablet 15 mg PO QHS PRN PRN sleep 04/15/24 Unknown History Allergy/AdvReac Type Severity Reaction Status Date / Time Iodinated Contrast Media Allergy Mild Scratchy Verified 04/15/24 10:32 throat, lip numbness fluticasone (From Advair Allergy Anaphylaxis Verified 04/15/24 10:32 Diskus) promethazine Allergy Unknown Verified 04/15/24 10:32 salmeterol (From Advair Allergy Anaphylaxis Verified 04/15/24 10:32 Diskus) latex AdvReac Hives Verified 04/15/24 10:32 Family History Father Diabetes Parkinson's plus syndrome Mother Asthma Hypertension Diabetes Alzheimer disease Surgical History Hx of bilateral mastectomy Status post bilateral mastectomy Hx of surgical procedure History of endometrial ablation Hx of colonoscopy History of ERCP History of tonsillectomy and adenoidectomy History of 2 sections History of cholecystectomy Social History Smoking Status: Never smoker alcohol intake: never details: Special occasions substance use type: does not use caffeine: Yes (6 cups daily ) Type: coffee what type of physical activity do you participate in: walking Review of Systems (Anesthesia) ROS Narrative System reviewed and no additional complaints, except as documented.
[2024-04-21] MEDS: Lactated Ringers 1,000 ML 15 ML IV (09:37)
--- NOTE | 2024-04-21 09:55 | H&P.OPEN ---
HPI - General HPI Narrative OMID WEAVER, is a 53 F who presents for screening colonoscopy. Her last colonoscopy was 20 years ago. She reports no abdominal pain or blood in the stool. She is currently undergoing chemotherapy for breast cancer. 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 Hypokalemia Dehydration Bone pain due to G-CSF CINV (chemotherapy-induced nausea and vomiting) Encounter for monitoring cardiotoxic drug therapy Encounter for chemotherapy management Encounter for education Wears glasses Anxiety Alcohol use Cancer Peau d'orange over breast Arthritis Low iron Diverticulosis Heartburn Non-smoker History of edema History of echocardiogram Hx of fracture of leg Borderline diabetes Cold sensitivity Pancreatitis Kidney atrophy Diarrhea Home Medications ?Medication ?Instructions ?Recorded ?Last Taken ?Type escitalopram oxalate 10 mg tablet 10 mg PO DAILY 06/08/23 04/20/24 History (Lexapro) lidocaine-prilocaine 2.5 %-2.5 % 1 applic topical ONCE PRN port 07/16/23 Unknown Rx topical cream access 30 days #30 grams cetirizine 10 mg tablet (Zyrtec) 10 mg PO BID PRN PRN allergy 02/04/24 Unknown History symptoms hydroxyzine HCl 25 mg tablet 50 mg PO QHS PRN PRN sleep 02/04/24 Unknown History anastrozole 1 mg tablet 1 mg PO DAILY #30 tabs 03/24/24 04/20/24 Rx calcium carbonate 600 mg-vitamin 1 cap PO DAILY 04/15/24 04/20/24 History D3 5 mcg (200 unit) capsule (Calcium 600 + D(3)) melatonin 10 mg tablet 15 mg PO QHS PRN PRN sleep 04/15/24 Unknown History Allergy/AdvReac Type Severity Reaction Status Date / Time Iodinated Contrast Media Allergy Mild Scratchy Verified 04/21/24 09:33 throat, lip numbness fluticasone (From Advair Allergy Anaphylaxis Verified 04/21/24 09:33 Diskus) promethazine Allergy Unknown Verified 04/21/24 09:33 salmeterol (From Advair Allergy Anaphylaxis Verified 04/21/24 09:33 Diskus) latex AdvReac Hives Verified 04/21/24 09:33 Family History Father Diabetes Parkinson's plus syndrome Mother Asthma Hypertension Diabetes Alzheimer disease Surgical History Hx of bilateral mastectomy Status post bilateral mastectomy Hx of surgical procedure History of endometrial ablation Hx of colonoscopy History of ERCP History of tonsillectomy and adenoidectomy History of 2 sections History of cholecystectomy Social History Smoking Status: Never smoker alcohol intake: never details: Special occasions substance use type: does not use caffeine: Yes (6 cups daily ) Type: coffee what type of physical activity do you participate in: walking Past Medical/Surgical History Planned Operation Planned Operative Procedure(s): CSCOPE Previous Hospitalizations/Surgeries HX Hospitalizations: No Any Problems With Anesthesia: Yes (SHAKINESS) You/Your Family Experience Fever (Hyperthermia) With Anes: No Cholinesterase deficiency: No Cardiovascular Hx Hypertension: No Respiratory Hx Sleep Apnea: No Hx Respiratory Tract Infection/Cold (presently): No Do You Snore Loudly (louder than talking or can be heard): Yes Do You Often Feel Tired/ Fatigued/ Sleepy Dring Daytime?: No Has Anyone Observed You Stop Breathing During Sleep?: No Result (for STOP score): Negative Smoking Status: Never smoker Neurological Does patient have nerve stimulator: No Reproduction : No Psycho/Social Hx Anxiety: Yes Miscellaneous Recent Exposure to Contagious Disease: No Allergies Iodinated Contrast Media Allergy (Mild, Verified 04/21/24 09:33) Scratchy throat, lip numbness fluticasone (From Advair Diskus) Allergy (Verified 04/21/24 09:33) Anaphylaxis promethazine Allergy (Verified 04/21/24 09:33) Unknown salmeterol (From Advair Diskus) Allergy (Verified 04/21/24 09:33) Anaphylaxis latex Adverse Reaction (Verified 04/21/24 09:33) Hives Discharge Is Pt Admitted From a Intermediate, or a Alf: No After D/C, Where Do you Plan to Go: Return Home Vital Signs Vital Signs Vital Signs: 04/21/24 09:37 04/21/24 09:37 Temperature 97.4 F L Temperature Source Temporal Pulse Rate 83 Respiratory Rate 16 Respiratory Pattern Normal Blood Pressure 109/62 Blood Pressure Mean 77 Blood Pressure Source Monitor Blood Pressure Position Semi-Fowlers Blood Pressure Location Right Arm Pulse Ox 98 Oxygen Delivery Method Room Air Weight Weight: 187 lb 6.287 oz Body Mass Index (BMI) 32.1 Physical Exam Const alert and oriented x3 HEENT normocephalic Eyes PERRL Resp normal respiratory effort and normal air movement Cardio regular rate and regular rhythm GI soft to palpation, non-tender and non-distended Extremity normal to inspection Assessment & Plan Assessment/Plan (1) Screen for colon cancer: PLAN: I explained endoscopy in detail to the patient. I explained the risks including but not limited to stroke or heart attack with anesthesia, perforation of the GI tract, bleeding, infection. I explained that any of these could necessitate further emergency surgery. The patient understands and all questions were answered sufficiently. The patient wishes to proceed with procedure. Lalo Zelaya MD Pager: [facility] [address] [place] [address] [address] [place] [address] Office: Surgery Risks - Colonoscopy Risks Include but are not Limited To: Risks include but are not limited to: Bleeding, perforation requiring further surgery, inability to complete colonoscopy requiring barium enema.
--- NOTE | 2024-04-21 10:17 | PCM.POST.ANE ---
Anesthesia: Postop Eval I Current Vital Signs Temperature: 98.1 F Pulse Rate: 76 Blood Pressure: 98/63 Respiratory Rate: 18 Pulse Ox: 97 Oxygen Delivery Method: Room Air Assessment Airway patent: Yes Spontaneous unlabored respirations: Yes Mental status: Awake and Calm nausea: No Vomiting: No Anesthesia Complication: No Fluid Hydration Crystalloid volume administer (ml): 450 Total IV fluid infused: 450 Progress Note Anesthesia document: Postop Eval 1 completed: Yes
--- NOTE | 2024-04-21 10:24 | OP.COLON_ITS ---
Patient Name: Kelsey Viera Procedure Date: 04/21/2024 10:00 AM Date of : 1970 Age: 53 Procedure: Colonoscopy Indications: Screening for colorectal malignant neoplasm Providers: Lalo Zelaya MD Referring MD: Brice Floyd Md Medicines: Propofol per Anesthesia Patient Profile: This is a 53 year old female. Refer to note in patient chart for documentation of history and physical. Last Colonoscopy: more than 10 years ago. Complications: No immediate complications. Procedure: Pre-Anesthesia Assessment: - Prior to the procedure, a History and Physical was performed, and patient medications and allergies were reviewed. The patient's tolerance of previous anesthesia was also reviewed. The risks and benefits of the procedure and the sedation options and risks were discussed with the patient. All questions were answered, and informed consent was obtained. Prior Anticoagulants: The patient has taken no anticoagulant or antiplatelet agents. After reviewing the risks and benefits, the patient was deemed in satisfactory condition to undergo the procedure. After I obtained informed consent, the scope was passed under direct vision. Throughout the procedure, the patient's blood pressure, pulse, and oxygen saturations were monitored continuously. The Colonoscope was introduced through the anus and advanced to the cecum, identified by the appendiceal orifice, IC valve and transillumination. The colonoscopy was performed without difficulty. The patient tolerated the procedure well. The quality of the bowel preparation was good. The ileocecal valve, appendiceal orifice, and rectum were photographed. Scope In: 10:08:03 AM Scope Withdrawal Time 0 hours 6 minutes 6 seconds Scope Out: 10:18:11 AM Total Procedure Duration Time 0 hours 10 minutes 8 seconds Findings: The entire examined colon appeared normal on direct and retroflexion views. Impression: - The entire examined colon is normal on direct and retroflexion views. - No specimens collected. Recommendation: - Discharge patient to home. - Resume previous diet. - Continue present medications. - Repeat colonoscopy in 10 years for screening purposes. Procedure Code(s): --- Professional --- 05047, Colonoscopy, flexible; diagnostic, including collection of specimen(s) by brushing or washing, when performed (separate procedure) Diagnosis Code(s): --- Professional --- Z12.11, Encounter for screening for malignant neoplasm of colon CPT copyright 2021 [employer]. All rights reserved. The codes documented in this report are preliminary and upon commercial lending assistant review may be revised to meet current compliance requirements. Lalo Zelaya MD 04/21/2024 10:23:47 AM This report has been signed electronically. Number of Addenda: 0 Note Initiated On: 04/21/2024 10:00 AM
--- NOTE | 2024-04-21 10:24 | OP.CCLET_ITS ---
04/21/2024 Brice Floyd Md Re : Colonoscopy procedure for Kelsey Viera [place] This procedure was performed on Sunday, April 21, 2024. My impressions and recommendations are as follows: Impressions : - The entire examined colon is normal on direct and retroflexion views. - No specimens collected. Recommendations : - Discharge patient to home. - Resume previous diet. - Continue present medications. - Repeat colonoscopy in 10 years for screening purposes. My findings are described in the full procedure note, which is enclosed. If I can be of further assistance, please feel free to contact me at Doctor phone number(s): , Work: . Sincerely, Lalo Zelaya MD 04/21/2024 10:23:47 AM This report has been signed electronically.
--- NOTE | 2024-04-21 12:38 | POSTOPAN2_ITS ---
Anesthesia Postop Eval I Sum Postop Eval Completion status Anesthesia document: Postop Eval 1 completed: Yes Anesthesia Postop Eval I Summary Anesthesia Postop Eval I Summary: Anesthesia Postop Eval I: Assessment Summary Airway patent Yes 04/21/24 10:19 TITLE ONE READING TEACHER.SCHR Spontaneous unlabored Yes 04/21/24 10:19 TITLE ONE READING TEACHER.SCHR respirations Mental status Awake,Calm 04/21/24 10:19 TITLE ONE READING TEACHER.SCHR nausea No 04/21/24 10:19 TITLE ONE READING TEACHER.SCHR Vomiting No 04/21/24 10:19 TITLE ONE READING TEACHER.SCHR Anesthesia Postop Eval I: Fluid Summary Crystalloid volume administer 450 04/21/24 10:19 TITLE ONE READING TEACHER.SCHR (ml) Colloids volume administered ( ml) Blood Product volume administered (ml) Total IV fluid infused 450 04/21/24 10:19 TITLE ONE READING TEACHER.SCHR Anesthesia Postop Eval I: Summary Notes Anesthesia Complication No 04/21/24 10:19 TITLE ONE READING TEACHER.SCHR Anesthesia Complication Comment: Post-operative progress note Anesthesia: Postop Eval II Evaluation Mental status: Awake and Calm Pain Level: 0 nausea: No Vomiting: No Complications Anesthesia Complication: No
--- NOTE | 2024-04-21 12:38 | PCM.POSTANE2 ---
Anesthesia Postop Eval I Sum Postop Eval Completion status Anesthesia document: Postop Eval 1 completed: Yes Anesthesia Postop Eval I Summary Anesthesia Postop Eval I Summary: Anesthesia Postop Eval I: Assessment Summary Airway patent Yes 04/21/24 10:19 FREELANCE DATA ENTRY.SCHR Spontaneous unlabored Yes 04/21/24 10:19 FREELANCE DATA ENTRY.SCHR respirations Mental status Awake,Calm 04/21/24 10:19 FREELANCE DATA ENTRY.SCHR nausea No 04/21/24 10:19 FREELANCE DATA ENTRY.SCHR Vomiting No 04/21/24 10:19 FREELANCE DATA ENTRY.SCHR Anesthesia Postop Eval I: Fluid Summary Crystalloid volume administer 450 04/21/24 10:19 FREELANCE DATA ENTRY.SCHR (ml) Colloids volume administered ( ml) Blood Product volume administered (ml) Total IV fluid infused 450 04/21/24 10:19 FREELANCE DATA ENTRY.SCHR Anesthesia Postop Eval I: Summary Notes Anesthesia Complication No 04/21/24 10:19 FREELANCE DATA ENTRY.SCHR Anesthesia Complication Comment: Post-operative progress note Anesthesia: Postop Eval II Evaluation Mental status: Awake and Calm Pain Level: 0 nausea: No Vomiting: No Complications Anesthesia Complication: No
== END 2024-04-21 10:58 | disposition home or self-care (01) ==
LOC: EN 09:01 → AC 09:02
PROVIDERS: PCP Family Medicine; Referring Provider Family Medicine; Visit Provider Surgery
PROC: 0DJD8ZZ Inspection of Lower Intestinal Tract, Via Natural or Artificial Opening Endoscopic (ICD-10-PCS; CPT 45378; principal; 2024-04-21 09:55)
DX: Z12.11 Encounter for screening for malignant neoplasm of colon (principal); C50.919 Malignant neoplasm of unspecified site of unspecified female breast; F41.9 Anxiety disorder, unspecified; Z79.899 Other long term (current) drug therapy; Z90.49 Acquired absence of other specified parts of digestive tract
CPT/HCPCS: 45378; J7120

== ENCOUNTER → 2024-05-19 | Outpatient (CLI) | payer OTHER, SELFPAY ==
--- NOTE | 2024-05-19 12:50 | ECHOLONC_ITS ---
Reason For Study: [employer] Procedure This was a limited 2D transthoracic echocardiogram. Myocardial strain analysis was performed in this exam to aid in the assessment of cardiac function. Exam performed in department. Left Ventricle Normal LV size. Left ventricular systolic function is normal. The left ventricular ejection fraction is 70 %. Right Ventricle Normal RV size. Normal systolic function. Atria Normal left atrium. Normal right atrium. Mitral Valve Normal mitral valve. Tricuspid Valve Normal tricuspid valve. Mild tricuspid valve insufficiency. Pulmonary artery systolic pressure is 20 mmHg. Aortic Valve Trisinus/trileaflet aortic valve. Pulmonic Valve Normal pulmonic valve. Great Vessels Normal aortic root. The pulmonary artery is normal size. Inferior vena cava collapse with respiration. Pericardium/Pleural No pericardial effusion. MMode/2D Measurements & Calculations LVIDd: 4.0 cm IVSd: 0.98 cm LVAd ap4: 26.1 cm2 LVIDs: 2.5 cm LVPWd: 0.96 cm LVLd ap4: 7.7 cm FS: 35.9 % EDV(MOD-sp4): 73.2 ml EDV(sp4-el): 74.6 ml LVAs ap4: 12.8 cm2 LVLs ap4: 6.0 cm ESV(MOD-sp4): 23.2 ml ESV(sp4-el): 23.0 ml EF(MOD-sp4): 68.3 % EF(sp4-el): 69.2 % LVAd ap2: 17.6 cm2 SV(MOD-sp4): 50.0 ml SV(MOD-sp2): 25.0 ml LVLd ap2: 6.8 cm EDV(MOD-sp2): 37.1 ml EDV(sp2-el): 39.1 ml LVAs ap2: 9.0 cm2 LVLs ap2: 5.5 cm ESV(MOD-sp2): 12.1 ml ESV(sp2-el): 12.7 ml EF(MOD-sp2): 67.3 % SV(sp4-el): 51.7 ml Doppler Measurements & Calculations TR max manjula: 209.5 cm/sec TR max P.6 mmHg ECHO/ONC Echo, Limited Study Interpretation Summary Normal LV size. Left ventricular systolic function is normal. The left ventricular ejection fraction is 70 %. The global longitudinal strain is normal. The global longitudinal strain = -19. 1 % (normal). Structurally normal valves. Ordering Physician: Brice Mcintosh Referring Physician: BRICE MAR Performed By: Chela Nieto RDCS
== END | disposition home or self-care (01) ==
LOC: CVS 12:50
PROVIDERS: PCP Family Medicine; Referring Provider Internal Medicine Medical Oncology; Visit Provider Internal Medicine Medical Oncology
DX: Z51.81 Encounter for therapeutic drug level monitoring (principal); Z79.899 Other long term (current) drug therapy
CPT/HCPCS: 93308; 93356

== ENCOUNTER → 2024-07-11 | Outpatient (CLI) | payer OTHER, SELFPAY ==
[2024-07-18 11:09] LABS: HPV APTIMA, High Risk Negative (Negative)
== END | disposition home or self-care (01) ==
PROVIDERS: PCP Family Medicine; Referring Provider Obstetrics & Gynecology; Visit Provider Obstetrics & Gynecology
DX: Z12.4 Encounter for screening for malignant neoplasm of cervix (principal)
CPT/HCPCS: 87624; 88175; G0145

== ENCOUNTER → 2024-07-25 | Outpatient (CLI) | payer OTHER, SELFPAY ==
[2024-07-25 12:00] LABS: Hemoglobin A1c 6.4 % (3.8-5.6)
== END | disposition home or self-care (01) ==
LOC: LAB 10:14
PROVIDERS: PCP Family Medicine; Referring Provider Physician Assistant; Visit Provider Physician Assistant
DX: R73.9 Hyperglycemia, unspecified (principal)
CPT/HCPCS: 36415; 83036

== ENCOUNTER → 2024-07-29 | Outpatient (CLI) | payer OTHER, SELFPAY ==
--- NOTE | 2024-07-29 09:49 | ECHODONC_ITS ---
Reason For Study: Therapeutic Drug Level Monitoring Procedure This was a 2D Doppler, Color Flow transthoracic echocardiogram. Myocardial strain analysis was performed in this exam to aid in the assessment of cardiac function. Exam performed in department. Left Ventricle Normal LV size. Left ventricular systolic function is normal. The left ventricular ejection fraction is 60 %. Stage 1 diastolic dysfunction. No regional wall motion abnormalities noted. Right Ventricle Normal RV size. Normal systolic function. Atria Normal left atrium. Normal right atrium. Mitral Valve Normal mitral valve. Tricuspid Valve Normal tricuspid valve. Mild tricuspid valve insufficiency. Aortic Valve Normal aortic valve. Trisinus/trileaflet aortic valve. Pulmonic Valve Normal pulmonic valve. Great Vessels Normal aortic root. The pulmonary artery is normal size. Normal inferior vena cava. Pericardium/Pleural No pericardial effusion. MMode/2D Measurements & Calculations LVIDd: 4.1 cm IVSd: 1.0 cm LVOT diam: 1.7 cm LVIDs: 2.5 cm LVPWd: 0.90 cm LVOT area: 2.4 cm2 RVDd: 3.2 cm FS: 39.2 % Ao root diam: 2.8 cm asc Aorta Diam: 3.3 cm LAV(MOD-bp): 36.4 ml LAV(MOD-bp) Indexed: 18.9 ml/m2 LAV(MOD-sp2): 35.9 ml LAV(MOD-sp4): 34.3 ml SV(MOD-sp4): 41.2 ml SV(sp4-el): 45.4 ml LVAd ap4: 24.9 cm2 LVLd ap4: 7.2 cm EDV(MOD-sp4): 68.8 ml EDV(sp4-el): 72.9 ml LVAs ap4: 14.1 cm2 LVLs ap4: 6.1 cm ESV(MOD-sp4): 27.6 ml ESV(sp4-el): 27.5 ml EF(MOD-sp4): 59.9 % EF(sp4-el): 62.3 % LA A4 area: 14.0 cm2 RA A4 area: 9.3 cm2 TAPSE: 2.4 cm Time Measurements MV dec time: 0.25 sec Doppler Measurements & Calculations MV E max edd: 77.8 cm/sec Lat Peak E' Edd: 9.4 cm/sec Med Peak E' Edd: 5.5 cm/sec MV A max edd: 88.2 cm/sec E/E' lat: 8.3 E/E' med: 14.2 MV E/A: 0.88 Ao V2 max: 144.5 cm/sec LV V1 max: 126.9 cm/sec MV dec slope: 305.7 cm/sec2 Ao max P.4 mmHg LV V1 max P.4 mmHg Ao V2 mean: 101.1 cm/sec LV V1 mean P.0 mmHg Ao mean P.7 mmHg LV V1 mean: 95.0 cm/sec Ao V2 VTI: 30.2 cm LV V1 VTI: 29.5 cm AV (velocity ratio): 0.98 DEB(I,D): 2.4 cm2 DEB(V,D): 2.1 cm2 SV(LVOT): 70.9 ml PA V2 max: 109.4 cm/sec TR max edd: 214.0 cm/sec PA max PG (full): 2.8 mmHg TR max P.3 mmHg ECHO/ONC Echo Complete Interpretation Summary Normal LV size. Left ventricular systolic function is normal. The left ventricular ejection fraction is 60 %. Stage 1 diastolic dysfunction. The global longitudinal strain is normal. The global longitudinal strain = -17 % (normal). Ordering Physician: Cece Hobbs Referring Physician: Brice Floyd Performed By: Libby Bruner RDCS, RVT
--- OUTSIDE RECORDS SUMMARY | 2024-07-29 10:20 | XMS RPT_ITS | CCD ---
Author Organization [facility] ion Partnership [facility] Care Team Providers Care Weigh Box Tender Name Role Phone Michaela Parra LPN N Unavailable Michaela Parra LPN N Unavailable Allergies Allergy Classification Reported Allergen(s) Allergy Type Date of Onset Reaction(s) Facility (2 sources) fluticasone / salmeterol drug allergy 03-14-2017 [facility] Work Phone: (2 sources) promethazine drug allergy 03-14-2017 [facility] Work Phone: (2 sources) NEUTRALON 50 [place] LAT[place] GLOVE drug allergy 03-14-2017 [facility] Work Phone: Medications Completed/Discontinued Medications Medication Drug Class(es) Dates Sig (Normalized) Sig (Original) methylprednisoLONE 4 mg oral tablet (2 sources) Corticosteroid Start: 7 End: 7 MEDROL 4 MG TBPK Take as directed METHYLPREDNISOLONE [id number] Jeff Cheung PA-C Problems Problem Classification Problem Date Documented Da te Episodic/Chronic Allergic reactions (2 sources) Contact dermatitis due to poison taylor; Translations: [Allergic contact dermatitis due to plants, except food] Onset: 03-14-2017 03-14-2017 Episodic Results Test Name Value Interpretation Reference Range Facil ity Office Visit: [facility]: Poison Taylor on 03-14-2017 Documentation of current medications (procedure) T Invalid Interpretation Code [facility] Work Phone: Documentation of current medications (procedure) Done Invalid Interpretation Code [facility] Work Phone: Tobacco smoking status NHIS Never Invalid Interpretation Code [facility] Work Phone: Tobacco use [facility] Never smoker Invalid Interpretation Code [facility] Work Phone: Vital Signs Date Time Vital Sign Value Performing Clinician Faci lity 03-14-2017 16:57-0400 BMI (Body Mass Index) 31.58 kg/m2 Michaela Parra LPN [facility] Work Phone: 03-14-2017 16:57-0400 Body Temperature 97.1 [degF] Michaela Parra LPN [facility] Work Phone: 03-14-2017 16:57-0400 BP Diastolic 86 mm[Hg] Michaela Parra LPN [facility] Work Phone: 03-14-2017 16:57-0400 BP Systolic 124 mm[Hg] Michaela Parra LPN [facility] Work Phone: 03-14-2017 16:57-0400 Height 162.56 cm Michaela Parra LPN [facility] Work Phone: 03-14-2017 16:57-0400 Pulse (Heart Rate) 82 /min Michaela Parra LPN [facility] Work Phone: 03-14-2017 16:57-0400 Pulse Oximetry 98 % Michaela Parra LPN [facility] Work Phone: 03-14-2017 16:57-0400 Respiratory Rate 16 /min Michaela Parra LPN [facility] Work Phone: 03-14-2017 16:57-0400 Weight 83.46 kg Michaela Parra LPN [facility] Work Phone: Plan of Treatment Date Care Activity Detail Author Start: 03-14-2017 End: 03-14-2017 Appointment Appointment [facility] Work Phone: Patient Education POISON%[id number] [facility] Work Phone: Additional Source Comments FOR RECORDS PERTAINING TO PATIENTS WHO ARE OR HAVE BEEN ENROLLED IN A CHEMICAL DEPENDENCY/SUBSTANCEABUSE PROGRAM, SOME INFORMATION MAY BE OMITTED. This clinical summary was aggregated from multiple sources. Caution should be exercised in using it in the provision of clinical care. This summary normalizes information from multiple sources, and as a consequence, information in this document may materially change the coding, format and clinical context of patient data. In addition, data may be omitted in some cases. CLINICAL DECISIONS SHOULD BE BASED ON THE PRIMARY CLINICAL RECORDS. [facility] [employer] [facility]. provides no warranty or guarantee of the accuracy or completeness of information in this document.
[2024-08-05 15:43] LABS: HPV Reflexed? NOT INDICATED
== END | disposition home or self-care (01) ==
LOC: CVS 09:48
PROVIDERS: Nurse Practitioner Women's Health; PCP Family Medicine; Referring Provider Nurse Practitioner Family; Visit Provider Nurse Practitioner Family
DX: Z12.4 Encounter for screening for malignant neoplasm of cervix (principal); C50.919 Malignant neoplasm of unspecified site of unspecified female breast; Z51.81 Encounter for therapeutic drug level monitoring; Z79.899 Other long term (current) drug therapy
CPT/HCPCS: 88175; 93306; 93356; G0145

== ENCOUNTER → 2024-11-21 | Outpatient (CLI) | payer OTHER, SELFPAY ==
--- NOTE | 2024-11-21 09:42 | ECHODONC_ITS ---
Reason For Study Reason For Study: CHEMOTHERAPY Procedure This was a 2D Doppler, Color Flow transthoracic echocardiogram. Myocardial strain analysis was performed in this exam to aid in the assessment of cardiac function. Exam performed in department. Left Ventricle Normal LV size. Left ventricular systolic function is normal. The left ventricular ejection fraction is 60 %. Right Ventricle Normal RV size. Normal systolic function. Atria Normal left atrium. Normal right atrium. Mitral Valve Normal mitral valve. Tricuspid Valve Normal tricuspid valve. Aortic Valve Trisinus/trileaflet aortic valve. Great Vessels Normal aortic root. The pulmonary artery is normal size. Inferior vena cava collapse with respiration. Pericardium/Pleural No pericardial effusion. MMode/2D Measurements & Calculations LVIDd: 3.9 cm IVSd: 1.0 cm LVOT diam: 1.9 cm LVIDs: 2.3 cm LVPWd: 0.86 cm LVOT area: 2.7 cm2 RVDd: 3.5 cm FS: 40.4 % asc Aorta Diam: 3.3 cm LAV(MOD-bp): 31.5 ml LVAd ap4: 21.5 cm2 LAV(MOD-bp) Indexed: 16.6 ml/m2 LVLd ap4: 7.0 cm LAV(MOD-sp2): 34.0 ml EDV(MOD-sp4): 52.3 ml LAV(MOD-sp4): 29.4 ml EDV(sp4-el): 55.9 ml LVAs ap4: 11.1 cm2 LVLs ap4: 5.6 cm ESV(MOD-sp4): 18.4 ml ESV(sp4-el): 18.8 ml EF(MOD-sp4): 64.7 % EF(sp4-el): 66.4 % SV(MOD-sp4): 33.8 ml SV(MOD-sp2): 41.7 ml LVAd ap2: 25.7 cm2 LVLd ap2: 8.0 cm SI(MOD-sp4): 17.9 ml/m2 SI(MOD-sp2): 22.0 ml/m2 EDV(MOD-sp2): 67.3 ml EDV(sp2-el): 70.1 ml LVAs ap2: 14.1 cm2 LVLs ap2: 6.5 cm ESV(MOD-sp2): 25.5 ml ESV(sp2-el): 25.9 ml EF(MOD-sp2): 62.0 % SV(sp4-el): 37.1 ml Ao sinus diam: 2.[address] Junction: 2.4 cm LA A4 area: 13.0 cm2 LA dimension(2D): 3.8 cm RA A4 area: 10.5 cm2 TAPSE: 1.5 cm Time Measurements MV dec time: 0.17 sec Doppler Measurements & Calculations MV E max edd: 91.3 cm/sec Lat Peak E' Edd: 9.4 cm/sec Med Peak E' Edd: 8.0 cm/sec MV A max edd: 103.3 cm/sec E/E' lat: 9.7 E/E' med: 11.4 MV E/A: 0.88 Ao V2 max: 158.5 cm/sec LV V1 max: 125.1 cm/sec MV dec slope: 529.2 cm/sec2 Ao max P.0 mmHg LV V1 max P.3 mmHg Ao V2 mean: 117.5 cm/sec LV V1 mean P.1 mmHg Ao mean P.0 mmHg LV V1 mean: 98.2 cm/sec Ao V2 VTI: 31.2 cm LV V1 VTI: 27.5 cm AV (velocity ratio): 0.88 DEB(I,D): 2.4 cm2 DEB(V,D): 2.1 cm2 SV(LVOT): 73.9 ml PA V2 max: 113.9 cm/sec TR max edd: 235.6 cm/sec TR max P.2 mmHg ECHO/ONC Echo Complete Interpretation Summary The left ventricular ejection fraction is 60 %. Left ventricular systolic function is normal. Normal LV size. The global longitudinal strain is normal. The global longitudinal strain is normal. The global longitudinal strain = -17. 4 % (normal). Ordering Physician: Keith Conti Referring Physician: JAIDA MAR Performed By: Casandra Jaquez RDCS
== END | disposition home or self-care (01) ==
LOC: CVS 09:41
PROVIDERS: PCP Family Medicine; Referring Provider Internal Medicine Cardiovascular Disease; Visit Provider Internal Medicine Cardiovascular Disease
DX: I34.0 Nonrheumatic mitral (valve) insufficiency (principal)
CPT/HCPCS: 93306; 93356

== ENCOUNTER → 2025-01-23 | Outpatient (CLI) | payer OTHER, SELFPAY ==
[2025-01-23 10:41] LABS: Absolute Lymphocyte Count 0.99 X10^3/uL (0.83-4.51); Absolute Neutrophil Count 3.2 X10^3/uL (2.0-7.7); Basophil# 0.03 X10^3/uL; Basophil% 0.6 % (0-1); Eosinophil# 0.18 X10^3/uL; Eosinophils% 3.8 % (0-5); Hematocrit 39.5 % (37-47); Hemoglobin 13.2 g/dL (12.0-15.0); Lymphocyte # 0.99 X10^3/ul (0.83-4.51); Mean Corp Hgb Conc 33.4 g/dL (32-36); Mean Corpuscular Hgb 27.8 pg (27.0-32.0); Mean Corpuscular Volume 83.2 fL (81-99); Mean Platelet Vol. 10.3 fl (6.2-12.0); Monocyte# 0.34 X10^3/uL; Monocyte% 7.2 % (0-10); NRBC Flagged by Analyzer 0 % (0-5); Neutrophil # 3.16 X10^3/uL (2.7-7.7); Platelet Count 237 K/mm3 (150-450); RBC Distribution Width CV 13.2 % (11.6-14.6); RBC Distribution Width SD 40.2 fl (35.1-43.9); Red Blood Count 4.75 M/mm3 (4.2-5.4); White Blood Count 4.7 K/mm3 (4.4-11.0)
[2025-01-23 11:24] LABS: Hemoglobin A1c 6.2 % (<=5.6)
[2025-01-23 11:34] LABS: ALB/GLOB Ratio 1.6 RATIO (0.9-2.4); AST(SGOT) 25 U/L (<=31); Alanine Aminotransfer ALT/SGPT 41 U/L (<=34); Albumin, Serum 4.4 g/dL (3.5-5.0); Alkaline Phosphatase 74 U/L (35-104); Anion Gap 12 (5-15); BUN 18 mg/dL (4-19); BUN/Creat Ratio 26.3 RATIO (10-20); Calcium,Total 9.7 mg/dL (7.6-11.0); Carbon Dioxide 24.3 mmol/L (21.0-32.0); Chloride 101 mmol/L (98-108); Cholesterol 209 mg/dL (<=200); Creatinine, Serum 0.68 mg/dL (0.70-1.20); EST Glomerular Filtration Rate 103 (>60); Globulin 2.8 g/dL (2.2-4.2); Glucose 102 mg/dL (70-99); High Density Lipoprotein 52 mg/dL; Low Density Lipoprotein Calc. 138 mg/dL; Potassium 4.1 mmol/L (3.3-5.1); Protein, Total 7.2 g/dL (5.9-8.4); Sodium Level 137 mmol/L (133-145); Total Bilirubin 0.54 mg/dL (0.00-1.30); Triglycerides 96 mg/dL; Very Low Density Lipoprotein 19 mg/dL (5-40); cholesterol:hdl ratio screen 4.03
[2025-01-23 11:47] LABS: Microalbumin,Random Urine 30.4 mg/L (NO RANGE EST.); Microalbumin:Creatinine Ratio 159.2 mg/g CRE
== END | disposition home or self-care (01) ==
LOC: LAB 09:43
PROVIDERS: PCP Family Medicine; Referring Provider Physician Assistant; Visit Provider Physician Assistant
DX: D05.12 Intraductal carcinoma in situ of left breast (principal); R73.9 Hyperglycemia, unspecified; Z79.811 Long term (current) use of aromatase inhibitors
CPT/HCPCS: 36415; 80053; 80061; 82043; 82570; 83036; 85025

== ENCOUNTER → 2025-02-10 | Outpatient (CLI) | payer OTHER, SELFPAY ==
--- NOTE | 2025-02-10 13:45 | RAD_ITS ---
PROCEDURE: WRIST MIN 3 VIEWS 02/10/2025 REASON FOR EXAM: PAIN TECHNIQUE: 3 view(s) of the right wrist. COMPARISON: None FINDINGS: No acute fracture or dislocation. Joint spaces are maintained. No significant soft tissue swelling. No radiopaque foreign body. RAD/Wrist min 3 Views IMPRESSION: No acute findings. Reading Location: [place]
== END | disposition home or self-care (01) ==
PROVIDERS: PCP Family Medicine; Referring Provider Orthopaedic Surgery Sports Medicine; Visit Provider Orthopaedic Surgery Sports Medicine
DX: M25.531 Pain in right wrist (principal)
CPT/HCPCS: 73110

== ENCOUNTER → 2025-03-30 | Outpatient (CLI) | payer OTHER, SELFPAY ==
--- NOTE | 2025-03-30 10:25 | MRI_ITS ---
PROCEDURE: BRAIN W/WO CONTRAST 03/30/2025 REASON FOR EXAM: HEADACHE DIZZINESS, H/O BREAST CANCER TECHNIQUE: BRAIN W/WO CONTRAST Multiplanar and multisequence images were obtained. CONTRAST: Clariscan VOLUME: 18 mL IV. COMPARISON: Brain MRI 07/19/2023. FINDINGS: Brain: No intracranial mass or mass effect is seen. No midline shift is noted. No extra-axial fluid collection is seen. No area of abnormal postcontrast enhancement is noted. No orbital pathology is seen. Diffusion: No focus of abnormal diffusion restriction is seen. Ventricles: Normal. Major Intracranial Vessels: Unremarkable Sinuses: Clear. Mastoids: Clear. Other: None. MRI/Brain W/WO Contrast IMPRESSION: 1. No evidence of intracranial metastatic disease. 2. No acute process is noted. Reading Location: [place] [id number]
== END | disposition home or self-care (01) ==
LOC: MRI 10:14
PROVIDERS: PCP Family Medicine; Referring Provider Nurse Practitioner Family; Visit Provider Nurse Practitioner Family
DX: R51.9 Headache, unspecified (principal); R42 Dizziness and giddiness; Z85.3 Personal history of malignant neoplasm of breast
CPT/HCPCS: 70553; A9575

== ENCOUNTER → 2025-07-08 | Outpatient (CLI) | payer OTHER, SELFPAY ==
--- NOTE | 2025-07-08 07:25 | US_ITS ---
PROCEDURE: LIVER 07/08/2025 REASON FOR EXAM: ELEVATED ALT; H/O BREAST CANCER TECHNIQUE: Procedure Code: USLI Modality: US Procedure: LIVER COMPARISON: 06/06/2023 FINDINGS: Liver: Diffusely echogenic suggesting fatty infiltration. Gallbladder: Surgically absent. Common bile duct: Normal measuring 6.3 mm. Pancreas: Visualized portions are sonographically unremarkable. Other: Visualized portions of the right kidney are unremarkable. No right upper quadrant ascites. US/Liver IMPRESSION: FATTY LIVER. Bile ducts are at the upper limits of normal measuring 6 mm. Reading Location: [place] [address]
== END | disposition home or self-care (01) ==
PROVIDERS: PCP Family Medicine; Referring Provider Nurse Practitioner Family; Visit Provider Nurse Practitioner Family
DX: R79.89 Other specified abnormal findings of blood chemistry (principal); Z85.3 Personal history of malignant neoplasm of breast
CPT/HCPCS: 76705

== ENCOUNTER → 2025-07-31 | Outpatient (CLI) | payer OTHER, SELFPAY | END | disposition home or self-care (01) | LOC: LAB 10:26 | PROVIDERS: PCP Family Medicine; Referring Provider Physician Assistant; Visit Provider Physician Assistant | DX: Z00.01 Encounter for general adult medical examination with abnormal findings (principal); E78.2 Mixed hyperlipidemia; Z79.899 Other long term (current) drug therapy | CPT/HCPCS: 36415; 84443 ==